=== PATIENT | male | born 1940 | race Caucasian/White ===

== ENCOUNTER 2021-04-20 09:23 | Emergency (ER) | payer OTHER ==
[~2021-04-20] VITALS: Ht 180.3 cm; Wt 89.8 kg
[2021-04-20 14:34] VITALS: BP 122/76
== END 2021-04-20 14:36 | disposition home or self-care (01) ==
LOC: EDH 09:23
DX: Z04.3 Encounter for examination and observation following other accident (principal); I48.91 Unspecified atrial fibrillation; E11.9 Type 2 diabetes mellitus without complications; Z79.01 Long term (current) use of anticoagulants; Z86.73 Personal history of transient ischemic attack (TIA), and cerebral infarction without residual deficits; W18.39XA Other fall on same level, initial encounter; Y93.89 Activity, other specified; Y92.89 Other specified places as the place of occurrence of the external cause; Y99.8 Other external cause status
CPT/HCPCS: 70450; 72125

== ENCOUNTER 2022-06-28 10:37 | Emergency (ER) | payer OTHER ==
[~2022-06-28] VITALS: Ht 182.9 cm; Wt 93.9 kg
[2022-06-28 12:08] LABS: BASOPHILS % (AUTO) 0.5 % (0.0-5.0); EOSINOPHILS % (AUTO) 1.4 % (0.0-8.0); HEMATOCRIT 43.2 % (42-54); LYMPHOCYTES % (AUTO) 24.5 % (21.0-51.0); MEAN CORPUSCULAR HEMOGLOBIN 29.9 pg (27.0-33.0); MEAN CORPUSCULAR HGB CONC 33.1 g/dL (32.0-36.0); MEAN CORPUSCULAR VOLUME 90.4 fL (79-99); MONOCYTES % (AUTO) 8.8 % (3.0-13.0); NEUTROPHILS % (AUTO) 64.4 % (40.0-77.0); PLATELET COUNT (AUTO) 255 K/uL (130-400); RED BLOOD CELL COUNT(AUTO) 4.78 MIL/uL (4.50-6.20); RED CELL DISTRIBUTION WIDTH 14.7 % (11.0-15.5)
[2022-06-28 12:16] LABS: CREATININE 1.6 mg/dL (0.5-1.5)
[2022-06-28 12:18] LABS: INR 0.99 (0.85-1.15); PROTHROMBIN TIME 10.8 SEC (9.6-11.6)
[2022-06-28 12:19] LABS: APPEARANCE,URINE CLEAR (CLEAR); BILIRUBIN,URINE NEGATIVE (NEGATIVE); COLOR,URINE YELLOW (YELLOW); GLUCOSE, URINE (UA) NEGATIVE (NEGATIVE); KETONES,URINE NEGATIVE (NEGATIVE); LEUKOCYTE ESTERASE ,URINE NEGATIVE Leu/uL (NEGATIVE); NITRATE,URINE NEGATIVE (NEGATIVE); OCCULT BLOOD,URINE LARGE (NEGATIVE); PROTEIN,URINE 10 mg/dL (NEGATIVE); UROBILINOGEN,URINE 0.2 mg/dL (0.2-1.0)
[2022-06-28 12:19] LABS: PARTIAL THROMBOPLASTIN TIME 26.4 SEC (26.3-35.5)
[2022-06-28 12:21] LABS: ALBUMIN 4.4 g/dL (3.5-5.0); TOTAL PROTEIN, SERUM 8.3 g/dL (6.0-8.3)
[2022-06-28 12:29] LABS: RBC,URINE TNTC /HPF (0-1)
[2022-06-28 13:03] VITALS: BP 132/90
== END 2022-06-28 13:18 | disposition home or self-care (01) ==
LOC: EDH 10:37
DX: R31.9 Hematuria, unspecified (principal); E11.9 Type 2 diabetes mellitus without complications; I48.91 Unspecified atrial fibrillation; Z88.5 Allergy status to narcotic agent; Z86.73 Personal history of transient ischemic attack (TIA), and cerebral infarction without residual deficits; Z98.890 Other specified postprocedural states
CPT/HCPCS: 36415; 80053; 81001; 85025; 85610; 85730; 87088

== ENCOUNTER 2022-07-12 13:40 | Observation (INO) | payer OTHER ==
[~2022-07-12] VITALS: Ht 182.9 cm; Wt 94.5 kg
[2022-07-12 14:00] LABS: BASOPHILS % (AUTO) 0.2 % (0.0-5.0); EOSINOPHILS % (AUTO) 0.1 % (0.0-8.0); HEMATOCRIT 39.2 % (42-54); LYMPHOCYTES % (AUTO) 7.9 % (21.0-51.0); MEAN CORPUSCULAR HEMOGLOBIN 30.2 pg (27.0-33.0); MEAN CORPUSCULAR HGB CONC 33.2 g/dL (32.0-36.0); MEAN CORPUSCULAR VOLUME 91.2 fL (79-99); MONOCYTES % (AUTO) 7.1 % (3.0-13.0); NEUTROPHILS % (AUTO) 84.2 % (40.0-77.0); PLATELET COUNT (AUTO) 199 K/uL (130-400); WHITE BLOOD COUNT (AUTO) 17.8 K/uL (4.8-10.8)
[2022-07-12 14:11] LABS: CREATININE 1.7 mg/dL (0.5-1.5); POTASSIUM 3.7 mmol/L (3.5-5.1)
[2022-07-12 14:13] LABS: PROTHROMBIN TIME 10.9 SEC (9.6-11.6)
[2022-07-12 14:14] LABS: PARTIAL THROMBOPLASTIN TIME 27.4 SEC (26.3-35.5)
[2022-07-12 14:17] LABS: ALBUMIN 4.1 g/dL (3.5-5.0); TOTAL PROTEIN, SERUM 7.7 g/dL (6.0-8.3)
[2022-07-12 14:24] LABS: B-TYPE NATRIURETIC PEPTIDE 24 pg/mL (0-100)
[2022-07-12] MEDS ORDERED: CLOP75TA32 PO (14:31)
[2022-07-12] MEDS ORDERED: GABA300S3 PO (14:31)
[2022-07-12] MEDS ORDERED: ATOR20TA65 PO (14:31)
[2022-07-12] MEDS ORDERED: VITA1CAP PO (14:31)
[2022-07-12] MEDS ORDERED: ALLO300T2 PO (14:31)
[2022-07-12] MEDS ORDERED: FURO40TA5 PO (14:31)
[2022-07-12] MEDS ORDERED: METO-408 PO (14:31)
[2022-07-12] MEDS ORDERED: APIX2.5T PO (14:31)
[2022-07-12 14:34] LABS: APPEARANCE,URINE CLEAR (CLEAR); BILIRUBIN,URINE NEGATIVE (NEGATIVE); COLOR,URINE YELLOW (YELLOW); GLUCOSE, URINE (UA) NEGATIVE (NEGATIVE); KETONES,URINE NEGATIVE (NEGATIVE); LEUKOCYTE ESTERASE ,URINE NEGATIVE Leu/uL (NEGATIVE); NITRATE,URINE NEGATIVE (NEGATIVE); OCCULT BLOOD,URINE LARGE (NEGATIVE); PH,URINE 5.5 (5.0-8.0); PROTEIN,URINE NEGATIVE (NEGATIVE); UROBILINOGEN,URINE 0.2 mg/dL (0.2-1.0)
[2022-07-12 14:41] LABS: RBC,URINE 51-100 /HPF (0-1)
[2022-07-12] MEDS ORDERED: ASPIRIN 81MG CHEW TAB PO ONE (16:30)
[2022-07-12] MEDS ORDERED: ONDANSETRON 4MG INJ IV PRN (18:30)
[2022-07-12] MEDS ORDERED: ACETAMINOPHEN 325 MG TAB PO PRN ×2 (18:30)
[2022-07-12] MEDS ORDERED: CLOPIDOGREL 75MG TAB PO SCH (18:30)
[2022-07-12 19:10] LABS: HEMOGLOBIN A1C 6.6 % (4.0-6.0)
[2022-07-12] MEDS: METOPROLOL TARTRATE 25 MG TAB PO SCH (20:20)
[2022-07-12] MEDS: FAMOTIDINE 20MG TAB PO SCH (20:22)
[2022-07-12] MEDS ORDERED: ATORVASTATIN 40 MG TABLET PO SCH (21:00)
[2022-07-12 22:37] VITALS: BP 138/65
[2022-07-13 04:00] VITALS: BP 108/53
[2022-07-13 05:40] LABS: BASOPHILS % (AUTO) 0.3 % (0.0-5.0); LYMPHOCYTES % (AUTO) 15.2 % (21.0-51.0); MEAN CORPUSCULAR HEMOGLOBIN 30.3 pg (27.0-33.0); MEAN CORPUSCULAR HGB CONC 32.8 g/dL (32.0-36.0); MEAN CORPUSCULAR VOLUME 92.5 fL (79-99); MONOCYTES % (AUTO) 7.2 % (3.0-13.0); NEUTROPHILS % (AUTO) 75.8 % (40.0-77.0); PLATELET COUNT (AUTO) 178 K/uL (130-400); RED BLOOD CELL COUNT(AUTO) 3.89 MIL/uL (4.50-6.20); WHITE BLOOD COUNT (AUTO) 10.5 K/uL (4.8-10.8)
[2022-07-13 05:58] LABS: CREATININE 1.6 mg/dL (0.5-1.5); POTASSIUM 3.5 mmol/L (3.5-5.1)
[2022-07-13 08:00] VITALS: BP 165/79
[2022-07-13] MEDS ORDERED: ASPIRIN 81MG CHEW TAB PO SCH (09:00)
[2022-07-13] MEDS ORDERED: CLOPIDOGREL 75MG TAB PO SCH (09:00)
[2022-07-13] MEDS: FAMOTIDINE 20MG TAB PO SCH (09:37)
[2022-07-13] MEDS: METOPROLOL TARTRATE 25 MG TAB PO SCH (09:37)
[2022-07-13 12:00] VITALS: BP 138/63
[2022-07-13 16:00] VITALS: BP 130/64
[2022-07-13] MEDS ORDERED: ATOR40TA69 PO (17:17)
[2022-07-13] MEDS ORDERED: APIXABAN 2.5 MG TABLET PO ONE (17:30)
== END 2022-07-13 17:35 | disposition home or self-care (01) ==
LOC: EDH 13:40 → EDHIP 18:20 → 4AH 22:33
PROVIDERS: ADMIT Internal Medicine; ATTEND Internal Medicine
DX: G45.9 Transient cerebral ischemic attack, unspecified (principal); D72.829 Elevated white blood cell count, unspecified; D64.9 Anemia, unspecified; E87.1 Hypo-osmolality and hyponatremia; I12.9 Hypertensive chronic kidney disease with stage 1 through stage 4 chronic kidney disease, or unspecified chronic kidney disease; N18.32 Chronic kidney disease, stage 3b; I48.0 Paroxysmal atrial fibrillation; I63.9 Cerebral infarction, unspecified; E78.00 Pure hypercholesterolemia, unspecified; R47.01 Aphasia; R29.700 NIHSS score 0; Z79.01 Long term (current) use of anticoagulants; Z79.02 Long term (current) use of antithrombotics/antiplatelets; Z79.899 Other long term (current) drug therapy; Z86.73 Personal history of transient ischemic attack (TIA), and cerebral infarction without residual deficits; Z88.5 Allergy status to narcotic agent; Z98.890 Other specified postprocedural states
CPT/HCPCS: 99285; 83036; 82550; 83721; 84484; 80053; 83880; 85025 ×2; 85610; 85730; 87088; 82948; 81001; 36415 ×2; 71045; 70450; 76770; 93880; 93005; 80061; 80048; 93306; 70551; G0378 ×22

== ENCOUNTER 2023-04-02 17:28 | Emergency (ER) | payer OTHER ==
[~2023-04-02] VITALS: Ht 182.9 cm; Wt 98.0 kg
[~2023-04-02 17:28] MED LIST: ALLO300T2 PO; APIX2.5T PO; ATOR40TA69 PO; BENZ-226 PO; CLOP75TA32 PO; FURO40TA5 PO; GABA300S3 PO; METO-408 PO; VITA1CAP PO
[2023-04-02] MEDS ORDERED: MAGNESIUM HYDROXIDE 30 ML/UDCUP PO STA (19:45)
[2023-04-02] MEDS ORDERED: MAGNESIUM HYDROXIDE 30 ML/UDCUP ONE (19:47)
[2023-04-02 19:56] VITALS: BP 155/65; PULSE 88; RESP 18; O2SAT 98
== END 2023-04-02 20:03 | disposition home or self-care (01) ==
LOC: EDH 17:28
DX: M54.9 Dorsalgia, unspecified (principal); R51.9 Headache, unspecified; E78.00 Pure hypercholesterolemia, unspecified; I48.91 Unspecified atrial fibrillation; Z79.899 Other long term (current) drug therapy; Z98.890 Other specified postprocedural states; Z88.5 Allergy status to narcotic agent; W01.0XXA Fall on same level from slipping, tripping and stumbling without subsequent striking against object, initial encounter; Y93.89 Activity, other specified; Y92.89 Other specified places as the place of occurrence of the external cause; Y99.8 Other external cause status
CPT/HCPCS: 70450; 71045; 72125

== ENCOUNTER 2023-10-08 17:04 | Emergency (ER) | payer OTHER ==
[~2023-10-08] VITALS: Ht 182.9 cm; Wt 95.3 kg
[~2023-10-08 17:04] MED LIST changes: +CHOL2000 PO; +MILK175T PO; +PANT40TA55 PO; +POTA-202 PO; +PRED20TA3 PO
[2023-10-08] MEDS: MAG/ALUM/SIMETH 30 ML UDCUP PO ONE (18:34)
[2023-10-08 18:38] VITALS: BP 126/54; PULSE 92; RESP 18; O2SAT 96
[2023-10-08] MEDS ORDERED: DICL20GE TP (18:49)
== END 2023-10-08 19:18 | disposition home or self-care (01) ==
LOC: EDH 17:04
DX: M25.561 Pain in right knee (principal); G89.29 Other chronic pain; M25.551 Pain in right hip; I10 Essential (primary) hypertension; Z79.01 Long term (current) use of anticoagulants; Z79.02 Long term (current) use of antithrombotics/antiplatelets; Z79.52 Long term (current) use of systemic steroids; Z79.899 Other long term (current) drug therapy; Z86.73 Personal history of transient ischemic attack (TIA), and cerebral infarction without residual deficits; Z88.5 Allergy status to narcotic agent
CPT/HCPCS: 73502; 73562

== ENCOUNTER 2023-11-17 16:26 | Emergency (ER) | payer OTHER ==
[~2023-11-17] VITALS: Ht 182.9 cm; Wt 95.3 kg
[~2023-11-17 16:26] MED LIST changes: +DICL20GE TP
[2023-11-17 17:26] LABS: INFLUENZA TYPE A Negative For Type A (NEGATIVE); INFLUENZA TYPE B Negative For Type B (NEGATIVE)
[2023-11-17 17:57] LABS: SARS-CoV-2, RNA, NAAT POSITIVE SARS CoV-2 (NEGATIVE)
[2023-11-17 19:13] LABS: APPEARANCE,URINE CLEAR (CLEAR); BILIRUBIN,URINE NEGATIVE (NEGATIVE); COLOR,URINE YELLOW (YELLOW); GLUCOSE, URINE (UA) NEGATIVE (NEGATIVE); KETONES,URINE NEGATIVE (NEGATIVE); LEUKOCYTE ESTERASE ,URINE NEGATIVE Leu/uL (NEGATIVE); NITRATE,URINE NEGATIVE (NEGATIVE); OCCULT BLOOD,URINE NEGATIVE (NEGATIVE); PROTEIN,URINE 20 mg/dL (NEGATIVE); UROBILINOGEN,URINE 0.2 mg/dL (0.2-1.0)
[2023-11-17 19:14] LABS: ADD UA MICROSCOPIC YES
[2023-11-17 19:16] LABS: MUCUS,URINE RARE LPF (None Seen); WBC,URINE 0-1 /HPF (0-1)
[2023-11-17] MEDS ORDERED: AZIT1PAC7 PO (20:21)
[2023-11-17 20:33] VITALS: BP 131/62; PULSE 95; RESP 18; O2SAT 96
== END 2023-11-17 20:34 | disposition home or self-care (01) ==
LOC: EDH 16:26
DX: U07.1 COVID-19 (principal); I10 Essential (primary) hypertension; I48.91 Unspecified atrial fibrillation; Z86.73 Personal history of transient ischemic attack (TIA), and cerebral infarction without residual deficits; Z88.5 Allergy status to narcotic agent; Z79.899 Other long term (current) drug therapy; Z79.2 Long term (current) use of antibiotics; Z79.02 Long term (current) use of antithrombotics/antiplatelets
CPT/HCPCS: 71045; 81001; 87635; 87804

== ENCOUNTER → 2024-03-11 | Outpatient (CLI) | payer OTHER ==
[~2024-03-11] MED LIST changes: -APIX2.5T PO; -BENZ-226 PO; -CLOP75TA32 PO; -DICL20GE TP; +EMPA25TA PO; -FURO40TA5 PO; -GABA300S3 PO; +LEVO-70 PO; -PANT40TA55 PO; -POTA-202 PO; -PRED20TA3 PO; +PREG100C56 PO
[2024-03-11 17:10] LABS: ALBUMIN 3.8 g/dL (3.5-5.0); BILIRUBIN,TOTAL 0.5 mg/dL (0.2-1.0); CREATININE 1.5 mg/dL (0.5-1.3); POTASSIUM 4.1 mmol/L (3.5-5.1); TOTAL PROTEIN, SERUM 7.2 g/dL (6.0-8.3)
== END | disposition home or self-care (01) ==
LOC: LAB 14:02
PROVIDERS: ATTEND Internal Medicine Cardiovascular Disease
DX: I10 Essential (primary) hypertension (principal)
CPT/HCPCS: 36415; 80053

== ENCOUNTER → 2024-03-17 | Outpatient (CLI) | payer OTHER | END | disposition home or self-care (01) | LOC: SHCH 08:40 | PROVIDERS: ATTEND Internal Medicine Cardiovascular Disease | DX: R60.9 Edema, unspecified (principal) | CPT/HCPCS: 93970 ==

== ENCOUNTER → 2024-08-13 | Outpatient (CLI) | payer OTHER ==
[2024-08-13 14:55] LABS: BASOPHILS # (AUTO) 0.02 K/uL (0.00-0.20); BASOPHILS % (AUTO) 0.3 % (0.0-5.0); EOSINOPHILS # (AUTO) 0.06 K/uL (0.00-0.70); HEMATOCRIT 36.4 % (42-54); IMMATURE GRANULOCYTE ABSOLUTE 0.03 K/uL (0-1); LYMPHOCYTES % (AUTO) 31.4 % (21.0-51.0); MEAN CORPUSCULAR HEMOGLOBIN 30.2 pg (27.0-33.0); MEAN CORPUSCULAR HGB CONC 33.8 g/dL (32.0-36.0); MEAN CORPUSCULAR VOLUME 89.4 fL (79-99); MONOCYTES # (AUTO) 0.4 K/uL (0.1-1.0); MONOCYTES % (AUTO) 6.4 % (3.0-13.0); NEUTROPHILS # (AUTO) 3.8 K/uL (1.8-7.7); NEUTROPHILS % (AUTO) 60.4 % (40.0-77.0); PLATELET COUNT (AUTO) 241 K/uL (130-400); RED BLOOD CELL COUNT(AUTO) 4.07 MIL/uL (4.50-6.20); RED CELL DISTRIBUTION WIDTH 15.9 % (11.0-15.5); WHITE BLOOD COUNT (AUTO) 6.3 K/uL (4.8-10.8)
[2024-08-13 15:04] LABS: CREATININE 1.6 mg/dL (0.5-1.3); POTASSIUM 3.7 mmol/L (3.5-5.1)
[2024-08-13 15:06] LABS: INR 1.03 (0.85-1.15); PROTHROMBIN TIME 10.9 SEC (9.6-11.6)
[2024-08-13 15:07] LABS: PARTIAL THROMBOPLASTIN TIME 27.1 SEC (26.3-35.5)
== END | disposition home or self-care (01) ==
LOC: LAB 12:56
PROVIDERS: ATTEND Internal Medicine Cardiovascular Disease
DX: Z01.812 Encounter for preprocedural laboratory examination (principal); I87.1 Compression of vein; I48.0 Paroxysmal atrial fibrillation; Z79.01 Long term (current) use of anticoagulants
CPT/HCPCS: 36415; 80048; 85025; 85610; 85730

== ENCOUNTER 2024-08-15 16:45 | Emergency (ER) | payer OTHER ==
[~2024-08-15] VITALS: Ht 182.9 cm; Wt 87.5 kg
--- NOTE | 2024-08-15 17:46 | ERN ---
General Chief Complaint: Other Problems Stated Complaint: SWELLING INCISION SITE Time Seen by MD: 16:48 Source: patient History of Present Illness Initial Comments PATIENT IS A AN 84-YEAR-OLD GENTLEMAN COMING IN TO BE EVALUATED FOR A INGUINAL WOUND. PATIENT STATES THAT HE HAD A ABLATION AND IT WAS PERFORMED THROUGH HIS FEMORAL ARTERY. HE STATES THAT HE WAS CONCERNED BECAUSE THERE WAS MILD SWELLING OF THE LEFT INGUINAL AREA. Allergies: Coded Allergies: morphine (Unverified Allergy, Unknown, 06/28/22) Uncoded Allergies: NICOTINIC ACID (Allergy, Unknown, 06/28/22) Home Meds Active Scripts Levofloxacin (Levofloxacin) 500 Mg Tablet, 1 TAB PO DAILY for 10 Days, #10 TAB 0 Refills Prov:SAMI MUSA MD 02/13/24 Atorvastatin Calcium (LIPITOR) 40 Mg Tablet, 40 MG PO HS for 30 Days, #30 TAB 1 Refill Prov:DANIEL JERONIMO Jr., MD 07/13/22 Reported Medications Empagliflozin (Jardiance) 25 Mg Tablet, 1 TAB PO DAILY for 30 Days, #30 TAB 0 Refills 02/12/24 Pregabalin (Pregabalin) 100 Mg Capsule, 1 CAP PO BID MDD 2 Capsule(s) for 30 Days, #60 CAP 0 Refills 02/12/24 Milk Thistle (Milk Thistle) 175 Mg Tablet, 175 MG PO DAILY, TAB 05/23/23 Cholecalciferol (Vitamin D3) (Vitamin D3) 50 Mcg (2000 Unit) Capsule, 50 MCG PO DAILY, CAP 05/23/23 Vitamin B Complex (B Complex) 1 Cap Capsule, 1 CAP PO DAILY, CAP 07/12/22 Allopurinol (Allopurinol) 300 Mg Tablet, 300 MG PO DAILY, TAB 07/12/22 Metoprolol Succinate (Metoprolol Succinate) 25 Mg Tab.er.24h, 25 MG PO DAILY, TAB 07/12/22 Past Medical History Past Medical History: Cancer, Hypertension, Pneumonia, TIA Medical History Other: leukymia Past Surgical History: Other Surgical History Other: 3RD CRAINAL NERVE DECOMPRESSION, RIGHT KNEE, Social History Social History: Negative ROS Dictation CONSTITUTIONAL: NO CHILLS, NO FEVER, NO WEAKNESS, NO DIAPHORESIS, NO MALAISE. HEAD/FACE: NO SIGNS OF TRAUMA. EENT: NO EYE PAIN, NO BLURRED VISION, NO TEARING, NO DOUBLE VISION, NO EAR PAIN, NO EAR DISCHARGE, NO NOSE PAIN, NO NASAL CONGESTION, NO THROAT PAIN, NO THROAT SWELLING, NO MOUTH PAIN. RESPIRATORY: NO COUGH, NO ORTHOPNEA, NO SOB, NO STRIDOR, NO WHEEZING. CARDIOVASCULAR: NO CHEST PAIN, NO EDEMA, NO PALPITATIONS, NO SYNCOPE. GASTROINTESTINAL/ABDOMINAL: NO ABDOMINAL PAIN, NO CONSTIPATION, NO DIARRHEA, NO NAUSEA, NO VOMITING. GENITOURINARY: NO ABNORMAL DISCHARGE, NO DYSURIA, NO FREQUENT URINATION, NO HEMATURIA. NO COMPLAINTS OF PAIN IN THE GENITALS. MUSCULOSKELETAL: NO BACK PAIN, NO GOUT, NO JOINT PAIN, NO JOINT SWELLING, NO MUSCLE PAIN, NO MUSCLE STIFFNESS, NO NECK PAIN. INTEGUMENTARY: NO CHANGE IN COLOR, NO CHANGE IN HAIR/NAILS, NO DRYNESS, NO LESION, LUMPS, NO RASH. NEUROLOGICAL/PSYCH: NO ANXIETY, NOT DEPRESSED, NO EMOTIONAL PROBLEM, NO HEADACHE, NO NUMBNESS, NO PRE-EXISTING DEFICIT, NO HISTORY OF SEIZURES, NO TREMORS, NO WEAKNESS. HEMATOLOGIC/LYMPHATIC: NOT ANEMIC, NO HISTORY OF BLOOD CLOTS, NO APPARENT BLEEDING, NO BRUISING, GLANDS NOT SWOLLEN. ALL SYSTEMS NEGATIVE, EXCEPT NOTED. Physical Exam Physical Exam Dictation VITAL SIGNS: REVIEWED. GENERAL APPEARANCE: ALERT, ORIENTED X3, NO ACUTE DISTRESS, OBESE. HEAD AND FACE: NON-TRAUMATIC. EYES: PERRL, PINK CONJUNCTIVAS, EYELID NO TRAUMA, ANTERIOR CHAMBER CLEAR. EARS: PINNAS INTACT AND NO SIGNS OF TRAUMA OR ERYTHEMA. EAR CANALS CLEAR AND NO DISCHARGE. TMS NO ERYTHEMA. NOSE: NO DISCHARGE, NO BLEEDING. OROPHARYNX: MOUTH NORMAL, TEETH NO CARIES, TONGUE PINK. PHARYNX CLEAR, NO ERYTHEMA. TONSILS NO EXUDATES, NO ABSCESSES NOTED. MUCOUS MEMBRANE MOIST. NECK: SUPPLE, NON-TENDER, NO THYROMEGALY, NO MASSES, NO JVD, NO BRUITS. BREAST: DEFERRED. CHEST: NO TENDERNESS, NO CREPITUS, NO PARADOXICAL MOVEMENT, NO RETRACTIONS. LUNGS: CLEAR, WELL-VENTILATED, SYMMETRIC, NO RALES, NO WHEEZING, NO RHONCHI, NO STRIDOR, GOOD BREATH SOUNDS BILATERALLY. HEART: REGULAR RATE, REGULAR RHYTHM, NO MURMUR, NO GALLOPS. VASCULAR: NO PERIPHERAL EDEMA. ABDOMEN: SOFT, POSITIVE BOWEL SOUNDS, NONDISTENDED, NO GUARDING, NONTENDER, NO REBOUND, NO MASSES NO HEPATOMEGALY, NO SPLENOMEGALY, NO MTOA'S SIGN, NO HERNIAS. RECTAL: DEFERRED. GENITAL: DEFERRED. NEUROLOGICAL: NORMAL SPEECH, GROSS MOTOR FUNCTION INTACT, GROSS SENSORY FUNCTION INTACT. MUSCULOSKELETAL: NECK NONTENDER, FULL RANGE OF MOTION, BACK NONTENDER, FULL RANGE OF MOTION. EXTREMITIES: NONTENDER, FULL RANGE OF MOTION. LEFT INGUINAL TENDERNESS, MILD SWELLING SKIN: COLOR PINK, DRY, NO TURGOR, NO RASH, NO LACERATIONS, NO ABRASIONS, NO CONTUSIONS. LYMPHATICS: DEFERRED. Results Laboratory and Microbiology Labs Reviewed?: Yes EKG/XRAY/US/CT/MRI Ultrasound Comment ULTRASOUND LEFT INGUINAL-NAD MDM MDM: DIFFERENTIAL DIAGNOSIS: WOUND EVALUATION, STATUS POST ABLATION RATIONALE: TESTS CONSIDERED AND ORDERED SECONDARY TO SHARED DECISION MAKING INCLUDE: PREVIOUS OUTSIDE RECORDS REVIEWED: OLD ER VISITS. RISK OF COMPLICATION AND/OR MORBIDITY OR MORTALITY OF PATIENT MANAGEMENT: NONE MEDICATIONS-PER MEDICATION RECONCILIATION PATIENT IS A AN 84-YEAR-OLD MALE COMING IN TO BE EVALUATED FOR LEFT INGUINAL TENDERNESS AFTER A PROCEDURE WAS PERFORMED EARLIER IN THE MORNING. 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 JASMINE. ULTRASOUND DID NOT DISCLOSE ACUTE FINDINGS. PATIENT WILL BE DISCHARGED IN STABLE CONDITION WITH A DIAGNOSIS OF STATUS POST ABLATION. ED Course Orders Procedure Category Date Status Time Us Soft Tissue Groin US 08/15/24 Taken 16:56 Vital Signs Date Time Temp Pulse Resp B/P (MAP) Pulse Ox O2 Delivery O2 Flow Rate FiO2 08/15/24 17:00 98.4 77 16 167/65 97 Room Air* 0 21 08/15/24 16:47 98.4 77 16 167/65 97 Room Air DX & DISP Disposition: Discharge Departure Impression: Primary Impression: Status post ablation of atrial fibrillation Additional Impression: Encounter for evaluation of wound Condition: Stable Additional Instructions: FOLLOW-UP WITH PRIMARY CARE PROVIDER IN 1 TO 2 DAYS. TAKE MEDICATIONS DIRECTED HERE IN THE EMERGENCY ROOM. OKAY TO CONTINUE HOME MEDICATIONS UNLESS OTHERWISE DISCUSSED DURING YOUR VISIT IN THE EMERGENCY ROOM TODAY. RETURN TO YOUR NEAREST EMERGENCY ROOM IF SYMPTOMS WORSEN OR IF THERE IS NO IMPROVEMENT. CALL 911 IF YOU NEED IMMEDIATE ASSISTANCE. TAKE TYLENOL [id number] NEEDED AND IF NO CONTRAINDICATIONS ARE PRESENT. INCREASE ORAL HYDRATION. A WOUND CULTURE OR URINE CULTURE WAS ORDERED HERE IN THE EMERGENCY ROOM DEPARTMENT PLEASE FOLLOW-UP WITH PRIMARY CARE PROVIDER AND ADVISE THEM TO GET REPEAT PORTS FROM OUR FACILITY. IF YOU HAD ANY JANET WRAP/SPLINTS THAT WERE APPLIED HERE, PLEASE DO NOT REMOVE THEM UNTIL YOU SEE YOUR PRIMARY CARE OR SPECIALTY. REFERRALS: Referrals: ANASTASIYA JOSHI MD (PCP) Time of Disposition: 17:46 RYAN CAREY MD August 15, 2024 17:46
[2024-08-15 18:00] VITALS: BP 152/45; PULSE 73; RESP 16; TEMP 98.5; O2SAT 98
--- NOTE | 2024-08-15 18:01 | HMCIMG ---
ULTRASOUND SOFT TISSUE GROIN INDICATION: Left inguinal swelling COMPARISON: None TECHNIQUE: Multiplanar sonographic images of the left groin were obtained earlier in real-time using grayscale and color Doppler technique, and subsequently made available for review. FINDINGS/IMPRESSION: No abnormality demonstrated along the left groin, including no evidence for pseudoaneurysm. Left common femoral artery is compressible and patent, and left common femoral arterial bypass graft is also patent.
== END 2024-08-15 18:11 | disposition home or self-care (01) ==
LOC: EDH 16:45
DX: I48.91 Unspecified atrial fibrillation (principal); I10 Essential (primary) hypertension; Z79.84 Long term (current) use of oral hypoglycemic drugs; Z79.899 Other long term (current) drug therapy; Z86.73 Personal history of transient ischemic attack (TIA), and cerebral infarction without residual deficits; Z88.5 Allergy status to narcotic agent; Z98.890 Other specified postprocedural states
CPT/HCPCS: 76882; 99284

== ENCOUNTER 2024-09-26 17:20 | Emergency (ER) | payer OTHER ==
[~2024-09-26] VITALS: Ht 167.6 cm; Wt 93.0 kg
--- NOTE | 2024-09-26 17:40 | ERN ---
ED Note History of Present Illness Stated Complaint: DIZZY BLURRED VISION Chief Complaint: Dizzy/Light Headed Time Seen by MD: 17:29 Time Seen by Midlevel: 17:29 Dictation: Mr. Rollins is a 84 year old gentleman with history of TIA, hypertension, atrial fibrillation, type II DM, anemia, multiple myeloma, peripheral neuropathy, COPD and MONICA who presented to the Emergency Department this evening for evaluation of dizziness. He states that 45 minutes ago he developed dizziness with blurred vision and intermittent nausea. He states that he checked his blood sugar at home and it was 160. He felt that his blood pressure may be elevated. He denies chills, fever, shortness of breath, cough, chest pain, palpitations, abdominal pain, vomiting, diarrhea, melena, hematochezia, hematemesis, [place]RO[place], seizure, dysarthria, dysphagia, or focal weakness/paresthesia. He states he has been outside working on projects and gardening in the heat of the day. PCP: [facility] Allergies: Coded Allergies: morphine (Unverified Allergy, Unknown, 06/28/22) Uncoded Allergies: NICOTINIC ACID (Allergy, Unknown, 06/28/22) Home Meds Active Scripts Levofloxacin (Levofloxacin) 500 Mg Tablet, 1 TAB PO DAILY for 10 Days, #10 TAB 0 Refills Prov:SAMI MUSA MD 02/13/24 Atorvastatin Calcium (LIPITOR) 40 Mg Tablet, 40 MG PO HS for 30 Days, #30 TAB 1 Refill Prov:DANIEL JERONIMO Jr., MD 07/13/22 Reported Medications Empagliflozin (Jardiance) 25 Mg Tablet, 1 TAB PO DAILY for 30 Days, #30 TAB 0 Refills 02/12/24 Pregabalin (Pregabalin) 100 Mg Capsule, 1 CAP PO BID MDD 2 Capsule(s) for 30 Days, #60 CAP 0 Refills 02/12/24 Milk Thistle (Milk Thistle) 175 Mg Tablet, 175 MG PO DAILY, TAB 05/23/23 Cholecalciferol (Vitamin D3) (Vitamin D3) 50 Mcg (2000 Unit) Capsule, 50 MCG PO DAILY, CAP 05/23/23 Vitamin B Complex (B Complex) 1 Cap Capsule, 1 CAP PO DAILY, CAP 07/12/22 Allopurinol (Allopurinol) 300 Mg Tablet, 300 MG PO DAILY, TAB 07/12/22 Metoprolol Succinate (Metoprolol Succinate) 25 Mg Tab.er.24h, 25 MG PO DAILY, TAB 07/12/22 Past Medical History Past Medical History: Cancer, Hypertension, Pneumonia, TIA Additional Past Medical Hx: leukymia Surgical History: Other Surgical History Other: 3RD CRAINAL NERVE DECOMPRESSION, RIGHT KNEE, PSYCH History: no pertinent psych hx Social History: Negative, Lives with family RN Note Reviewed/Agreed w/PFSH: Yes Review of System Dictation REVIEW OF SYSTEMS: CONSTITUTIONAL: Patient denies fevers, chills, sweats and weight changes. EYES: Reports blurry vision times 45 minutes. EARS, NOSE, AND THROAT: No difficulties with hearing. No symptoms of rhinitis or sore throat. CARDIOVASCULAR: Patient denies chest pains, palpitations, orthopnea and paroxysmal nocturnal dyspnea. States he felt like his blood pressure might be high. RESPIRATORY: No dyspnea on exertion, no wheezing or cough. GI: No vomiting, diarrhea, constipation, abdominal pain, hematochezia or melena. Reports intermittent nausea. : No urinary hesitancy or dribbling. No abnormal urethral discharge. Reports frequent urination per baseline. Patient states he voids 8-12 times/24 hours. MUSCULOSKELETAL: No myalgias or arthralgias. NEUROLOGIC: No chronic headaches, no seizures. Patient denies numbness, tingling or weakness. No difficulty speaking, swallowing, or walking. No focal weakness or paresthesia. PSYCHIATRIC: Patient denies problems with mood disturbance. No problems with anxiety. ENDOCRINE: No excessive urination or excessive thirst. DERMATOLOGIC: Patient denies any rashes or skin changes. Initial Vital Sign VS Vital Signs Date Time Temp Pulse Resp B/P (MAP) Pulse Ox O2 Delivery O2 Flow Rate FiO2 09/26/24 17:25 98.8 74 18 147/69 99 Room Air 0 09/26/24 19:19 21 Physical Exam Dictation Vital signs: Reviewed. Afebrile. Constitutional: No acute distress. Non-toxic appearing. Ambulating well (uses cane). Accompanied by significant other. Head/Face: Normocephalic, atraumatic. Eyes: Periorbital areas with no swelling, redness, or edema. Lids and lashes are normal. Conjunctival injection is absent. Sclera anicteric. Pupils equal, round, reactive to light. ENT: Pinnas intact and no signs of trauma or erythema. Ear canals clear and no discharge. TMs no erythema. No nasal discharge or bleeding noted. Oropharynx with no exudate, redness, swelling, masses, exudates, or evidence of obstruction. Uvula midline. Mucous membranes moist. Neck: Trachea midline, no masses palpated, and no cervical lymphadenopathy. No swelling. Supple, full range of motion. Chest/Axilla: No tenderness, no crepitus, no paradoxical movement, no retractions. Cardiovascular: Regular rate, regular rhythm, no murmur, no gallops. Symmetric pulses. No peripheral edema. Twelve lead EKG reflects a sinus rhythm without ST-elevation or depression. BP 147/69. Respiratory: Respirations even and unlabored. Lung sounds clear; no wheezes, rales or rhonchi. Room air SpO2 99% Gastrointestinal: Inspection is normal. No distention is appreciated. Bowel sounds are normal. No mass or organomegaly . There is no tenderness. No rebound. No rigidity. No voluntary or involuntary guarding. No Nino's sign. Neurological: Normal speech, gross motor function intact, gross sensory function intact. No focal weakness/Paresthesia. No ataxia. No dysphasia. No dysarthria. Musculoskeletal/Extremities: All extremities have full range of motion, no pain or tenderness on palpation. Symmetric pulses. Integumentary: Intact. Skin is normal color, warm and dry. Cap refill less than 3 seconds. Results (Laboratory/Radiology) Laboratory/Radiology Laboratory Tests Test 09/26/24 17:40 09/26/24 19:39 09/26/24 19:46 White Blood Count 7.7 K/uL (4.8-10.8) Red Blood Count 4.22 MIL/uL (4.50-6.20) L Hemoglobin 12.8 g/dL (14.0-18.0) L Hematocrit 38.6 % (42-54) L Mean Corpuscular Volume 91.5 fL (79-99) Mean Corpuscular Hemoglobin 30.3 pg (27.0-33.0) Mean Corpuscular Hemoglobin Concent 33.2 g/dL (32.0-36.0) Red Cell Distribution Width 14.8 % (11.0-15.5) Platelet Count 227 K/uL (130-400) Mean Platelet Volume 9.8 fL (7.5-10.5) Immature Granulocyte % (Auto) 0.4 % (0-1) Neutrophils (%) (Auto) 60.0 % (40.0-77.0) Lymphocytes (%) (Auto) 30.2 % (21.0-51.0) Monocytes (%) (Auto) 7.7 % (3.0-13.0) Eosinophils (%) (Auto) 1.3 % (0.0-8.0) Basophils (%) (Auto) 0.4 % (0.0-5.0) Neutrophils # (Auto) 4.6 K/uL (1.8-7.7) Lymphocytes # (Auto) 2.3 K/uL (1.0-4.8) Monocytes # (Auto) 0.6 K/uL (0.1-1.0) Eosinophils # (Auto) 0.10 K/uL (0.00-0.70) Basophils # (Auto) 0.03 K/uL (0.00-0.20) Absolute Immature Granulocyte (auto 0.03 K/uL (0-1) Nucleated Red Blood Cells 0.0 % (0.0-0.19) Sodium Level 141 mmol/L (136-145) Potassium Level 4.5 mmol/L (3.5-5.1) Chloride Level 105 mmol/L (101-111) Carbon Dioxide Level 27 mmol/L (21-32) Blood Urea Nitrogen 33 mg/dL (7-18) H Creatinine 1.2 mg/dL (0.5-1.3) Glomerular Filtration Rate Calc 59 mL/min (>90) Random Glucose 146 mg/dL (70-105) H Total Calcium 8.8 mg/dL (8.5-10.1) Total Bilirubin 0.5 mg/dL (0.2-1.0) Direct Bilirubin 0.2 mg/dL (0.0-0.3) Aspartate Amino Transf (AST/SGOT) 22 U/L (10-37) Alanine Aminotransferase (ALT/SGPT) 37 U/L (12-78) Alkaline Phosphatase 82 U/L (50-136) Troponin I High Sensitivity 8 ng/L (4-75) B-Type Natriuretic Peptide 11 pg/mL (0-100) Total Protein 7.5 g/dL (6.0-8.3) Albumin 4.1 g/dL (3.5-5.0) Influenza Type A Antigen Negative For Type A Influenza Type B Antigen Negative For Type B SARS-CoV-2, RNA, NAAT NEGATIVE SARS CoV-2 Urine Color LIGHT-YELLOW (YELLOW) Urine Appearance CLEAR (CLEAR) Urine pH 5.0 (5.0-8.0) Urine Specific [place] 1.020 (1.001-1.031) Urine Protein NEGATIVE mg/dL (NEGATIVE) Urine Glucose (UA) NEGATIVE mg/dL (NEGATIVE) Urine Ketones NEGATIVE mg/dL (NEGATIVE) Urine Occult Blood NEGATIVE (NEGATIVE) Urine Nitrate NEGATIVE (NEGATIVE) Urine Bilirubin NEGATIVE mg/dL (NEGATIVE) Urine Urobilinogen 0.2 mg/dL (0.2-1.0) Urine Leukocyte Esterase NEGATIVE Jyoti/uL Labs Reviewed?: Yes EKG Comment: EKG Interpretation: Time Reviewed: 1740 Ventricular rate: 73 bpm GA Interval: 140 ms QRS duration: [address] segment elevation or depression. Clinical impression: Sinus rhythm EKG Reviewed and interpreted by Dr. Jesisca Rothman CT Scan Comment: PATIENT: SERGIO ROLLINS MR#: [id number] : 1940 SEX: M AGE: 84 LOCATION: [facility] ORDER 33 STATUS: [facility] REPORT#: [id number] SERVICE 32 REASON: dizziness/blurred vision ORDERING PHYSICIAN: TOMÁS MACARIO NP PROCEDURE: HEAD WO - CT HEAD/BRAIN W/O CONTRAST CT HEAD/BRAIN W/O CONTRAST HISTORY: Dizziness and blurred vision COMPARISON: 09/26/2024 TECHNIQUE: Multiple sequential axial images of the head were obtained from the base of the skull through vertex. Patient was not given contrast through intravenous route. FINDINGS: The ventricles and extraventricular CSF spaces are dilated consistent with cerebral atrophy. Nonspecific white matter changes seen. There is no midline shift, mass effect or herniation. No acute intracranial bleed is seen. Visualized portion of the paranasal sinuses are grossly within normal limits. IMPRESSION: 1. No acute intracranial bleed is seen. 2. Atrophy with white matter changes. CT was performed with one or more following dose reduction techniques: automated exposure control, adjustment of the mA and kv according to patient's size, or use of a iterative reconstruction technique. DICTATED BY: CAMPOS WRIGHT MD DATE: 09/26/241908 ELECTRONICALLY SIGNED BY: CAMPOS WRIGHT MD DATE: 09/26/241912 ED Course ED Course Orders Procedure Category Date Status Time 12 Lead Ekg Tracing- EKG 09/26/24 Complete Technical 17:30 Cbc With Differential LAB 09/26/24 Complete 17:30 Basic Metabolic Panel LAB 09/26/24 Complete 17:30 Hepatic Function Panel LAB 09/26/24 Complete 17:30 Troponin I High LAB 09/26/24 Complete Sensitivity 17:30 B-Type Natriuretic LAB 09/26/24 Complete Peptide 17:30 Urinalysis Profile LAB 09/26/24 Complete 17:30 Influenza Type A & B, LAB 09/26/24 Complete Rapid 17:30 Covid Rna Naat LAB 09/26/24 Complete 17:30 Saline Lock Iv CPOE 09/26/24 Transmitted 17:30 Ct Head/Brain W/O CT 09/26/24 Resulted Contrast 17:33 0.9% Nacl 500ml PHA 09/26/24 In Process Iv.Soln (Ns 500ml 19:00 Current Medications Medications (Trade) Dose Ordered Sig/Naveed Route PRN Reason Start Time Stop Time Status Last Admin Dose Admin Sodium Chloride 500 ml @ 0 mls/hr ONCE IV 09/26/24 19:00 09/27/24 18:59 09/26/24 19:20 Vital Signs Date Time Temp Pulse Resp B/P (MAP) Pulse Ox O2 Delivery O2 Flow Rate FiO2 09/26/24 19:19 97.9 63 19 139/76 97 Room Air* 0 21 09/26/24 17:25 98.8 74 18 147/69 99 Room Air 0 Uneventful ED course. Vital signs stable; afebrile and normotensive with room air SpO2 97-98%. Twelve lead EKG reflects a sinus rhythm without ST-elevation. Stat noncontrast CT scan of the brain negative for intracerebral hemorrhage. Laboratory findings as noted below. H and H stable 12.8/38.6, BUN 33, BUN/CR ratio is 26.6, glucose 146. BNP and troponin are not elevated. COVID and influenza are negative. UA is clear. He denies chest pain or shortness of breath. He denies dizziness or vision changes. He has been ambulatory with steady gait. He received NS 500 mL IV as bolus. He will be discharged to home with his significant other for follow up with his PCP at the [facility]. Medical Decision Making MDM MDM: Differential diagnosis: Influenza, COVID, stroke, ACS, electrolyte derangement, dehydration/heat related injury. Rationale: Tests considered and ordered secondary to shared decision making include: EKG, CT, LAB Previous outside records reviewed: Old ER visits. Risk of complication and/or morbidity or mortality of patient management: None Medications-Per medication reconciliation Need for hospitalization: Patient does not meet criteria for hospitalization. Need for emergency major/minor surgery: No There are no social concerns with this patient. Prescription drug management: None Prescriptions will include symptomatic care Patient's prior external medical records from other ER visits were reviewed by me as indicated. Prior testing and results from previous visits were reviewed. Prior tests were taken into account with medical decision making and resource utilization, independent historian/historians were used to obtain complete medical history. I independently interpreted the test that were performed, results were reviewed by me and considered findings on radiology if ordered. Medical management and examination interpretation discussions were had by me with other qualified healthcare professionals as indicated for the patient's care. DX & DISP Disposition: Discharge Departure Impression: Primary Impression: Dehydration Additional Impression: Dizziness Condition: Stable Additional Instructions: Increase oral fluid intake. Consider spending your time outside in the direct of real estate or evening to avoid excessive heat exposure. Continue current medications. Follow up with your PCP at the [facility]. Return to the emergency department for any worsening of symptoms to include: Vision changes, persistent dizziness, headache, slurring of speech, or focal weakness/paresthesia. Referrals: ANASTASIYA JOSHI MD (PCP) Time of Disposition: 20:18 TOMÁS MACARIO NP Sep 26, 2024 17:40
--- NOTE | 2024-09-26 17:44 | EKG ---
[facility] Test Date: 2024-09-26 Test Time: 17:41:14 Pat Name: SERGIO YEBOAH Department: ED Room: Gender: M [employer] Supervisor: [id number] : 1940 Requested By: TOMÁS MACARIO Order Number: [id number] Reading MD: Mickey Boggs Measurements Intervals [place] Rate: 73 P: 65 WI: 140 QRS: 52 QRSD: 81 T: 24 QT: 369 QTc: 408 Interpretive Statements Sinus rhythm Low voltage, precordial leads Compared to ECG 02/11/2024 16:50:03 Low QRS voltage now present Sinus tachycardia no longer present Ventricular premature complex(es) no longer present Electronically Signed On 09-28-2024 14:41:32 CDT by Mickey Boggs Please click the below link to view image of tracing.
[2024-09-26 17:53] LABS: BASOPHILS # (AUTO) 0.03 K/uL (0.00-0.20); BASOPHILS % (AUTO) 0.4 % (0.0-5.0); EOSINOPHILS % (AUTO) 1.3 % (0.0-8.0); HEMATOCRIT 38.6 % (42-54); IMMATURE GRANULOCYTE ABSOLUTE 0.03 K/uL (0-1); LYMPHOCYTES # (AUTO) 2.3 K/uL (1.0-4.8); LYMPHOCYTES % (AUTO) 30.2 % (21.0-51.0); MEAN CORPUSCULAR HEMOGLOBIN 30.3 pg (27.0-33.0); MEAN CORPUSCULAR HGB CONC 33.2 g/dL (32.0-36.0); MEAN CORPUSCULAR VOLUME 91.5 fL (79-99); MONOCYTES # (AUTO) 0.6 K/uL (0.1-1.0); MONOCYTES % (AUTO) 7.7 % (3.0-13.0); NEUTROPHILS # (AUTO) 4.6 K/uL (1.8-7.7); PLATELET COUNT (AUTO) 227 K/uL (130-400); RED BLOOD CELL COUNT(AUTO) 4.22 MIL/uL (4.50-6.20); RED CELL DISTRIBUTION WIDTH 14.8 % (11.0-15.5); WHITE BLOOD COUNT (AUTO) 7.7 K/uL (4.8-10.8)
[2024-09-26 18:01] LABS: CREATININE 1.2 mg/dL (0.5-1.3); POTASSIUM 4.5 mmol/L (3.5-5.1)
[2024-09-26 18:11] LABS: ALBUMIN 4.1 g/dL (3.5-5.0); BILIRUBIN,DIRECT 0.2 mg/dL (0.0-0.3); BILIRUBIN,TOTAL 0.5 mg/dL (0.2-1.0); TOTAL PROTEIN, SERUM 7.5 g/dL (6.0-8.3)
[2024-09-26 18:33] LABS: B-TYPE NATRIURETIC PEPTIDE 11 pg/mL (0-100)
--- NOTE | 2024-09-26 19:13 | HMCIMG ---
CT HEAD/BRAIN W/O CONTRAST HISTORY: Dizziness and blurred vision COMPARISON: 09/26/2024 TECHNIQUE: Multiple sequential axial images of the head were obtained from the base of the skull through vertex. Patient was not given contrast through intravenous route. FINDINGS: The ventricles and extraventricular CSF spaces are dilated consistent with cerebral atrophy. Nonspecific white matter changes seen. There is no midline shift, mass effect or herniation. No acute intracranial bleed is seen. Visualized portion of the paranasal sinuses are grossly within normal limits. IMPRESSION: 1. No acute intracranial bleed is seen. 2. Atrophy with white matter changes. CT was performed with one or more following dose reduction techniques: automated exposure control, adjustment of the mA and kv according to patient's size, or use of a iterative reconstruction technique.
[2024-09-26] MEDS: 0.9% NACL 500ML IV.SOLN 500 ML IV SCH (19:20)
[2024-09-26 20:01] LABS: SARS-CoV-2, RNA, NAAT NEGATIVE SARS CoV-2 (NEGATIVE)
[2024-09-26 20:06] LABS: APPEARANCE,URINE CLEAR (CLEAR); BILIRUBIN,URINE NEGATIVE (NEGATIVE); COLOR,URINE LIGHT-YELLOW (YELLOW); GLUCOSE, URINE (UA) NEGATIVE (NEGATIVE); KETONES,URINE NEGATIVE (NEGATIVE); LEUKOCYTE ESTERASE ,URINE NEGATIVE Leu/uL (NEGATIVE); NITRATE,URINE NEGATIVE (NEGATIVE); OCCULT BLOOD,URINE NEGATIVE (NEGATIVE); PROTEIN,URINE NEGATIVE (NEGATIVE); UROBILINOGEN,URINE 0.2 mg/dL (0.2-1.0)
[2024-09-26 20:06] LABS: INFLUENZA TYPE A Negative For Type A (NEGATIVE); INFLUENZA TYPE B Negative For Type B (NEGATIVE)
[2024-09-26 20:08] LABS: ADD UA MICROSCOPIC NO
[2024-09-26 20:28] VITALS: BP 143/74; PULSE 67; RESP 19; TEMP 98.1; O2SAT 97
== END 2024-09-26 20:33 | disposition home or self-care (01) ==
LOC: EDH 17:20
DX: R42 Dizziness and giddiness (principal); E86.0 Dehydration; I10 Essential (primary) hypertension; Z20.822 Contact with and (suspected) exposure to COVID-19; Z79.84 Long term (current) use of oral hypoglycemic drugs; Z79.899 Other long term (current) drug therapy; Z86.73 Personal history of transient ischemic attack (TIA), and cerebral infarction without residual deficits; Z88.5 Allergy status to narcotic agent; Z98.890 Other specified postprocedural states
CPT/HCPCS: 99284; 96360; 70450; 87635; 80076; 84484; 80048; 83880; 85025; 87804 ×2; 81003; 36415; 93005; J7040

== ENCOUNTER 2025-02-04 02:29 | Observation (INO) | payer OTHER, MEDICARE ==
[~2025-02-04] VITALS: Ht 182.9 cm; Wt 77.1 kg
[2025-02-04 03:10] LABS: IMMATURE GRANULOCYTE ABSOLUTE 0.06 K/uL (0-1); NUCLEATED RED BLOOD CELLS 0.0 % (0.0-0.19); PLATELET COUNT (AUTO) 229 K/uL (130-400); RED BLOOD CELL COUNT(AUTO) 4.07 MIL/uL (4.50-6.20); RED CELL DISTRIBUTION WIDTH 15.3 % (11.0-15.5); WHITE BLOOD COUNT (AUTO) 11.7 K/uL (4.8-10.8)
[2025-02-04 03:12] LABS: APPEARANCE,URINE CLEAR (CLEAR); GLUCOSE, URINE (UA) NEGATIVE (NEGATIVE); LEUKOCYTE ESTERASE ,URINE NEGATIVE Leu/uL (NEGATIVE); NITRATE,URINE NEGATIVE (NEGATIVE); OCCULT BLOOD,URINE NEGATIVE (NEGATIVE)
[2025-02-04 03:13] LABS: ADD UA MICROSCOPIC NO
[2025-02-04 03:19] LABS: CREATININE 1.3 mg/dL (0.5-1.3); GLOMERULAR FILTR. RATE CALC 53.0 mL/min (>90); GLUCOSE,RANDOM 173.0 mg/dL (70-105); SODIUM SERUM 142.0 mmol/L (136-145); UREA NITROGEN, BLOOD 43.0 mg/dL (7-18)
[2025-02-04 03:21] LABS: INR 0.98 (0.85-1.15)
[2025-02-04 03:24] LABS: CREATINE KINASE, TOTAL 33.0 U/L (21-232)
--- NOTE | 2025-02-04 03:52 | ERN ---
General Chief Complaint: Dizzy/Light Headed Stated Complaint: LIGHTHEADED Time Seen by MD: 02:31 Source: patient History of Present Illness Initial Comments Patient is a 85-year-old male coming in to be evaluated after he had a confusion generalized weakness which lasted for about 30 minutes. Patient states he feels better now but still little weak. Allergies: Coded Allergies: morphine (Unverified Allergy, Unknown, 06/28/22) Uncoded Allergies: NICOTINIC ACID (Allergy, Unknown, 06/28/22) Home Meds Active Scripts Levofloxacin (Levofloxacin) 500 Mg Tablet, 1 TAB PO DAILY for 10 Days, #10 TAB 0 Refills Prov:SAMI MUSA MD 02/13/24 Atorvastatin Calcium (LIPITOR) 40 Mg Tablet, 40 MG PO HS for 30 Days, #30 TAB 1 Refill Prov:DANIEL JERONIMO Jr., MD 07/13/22 Reported Medications Empagliflozin (Jardiance) 25 Mg Tablet, 1 TAB PO DAILY for 30 Days, #30 TAB 0 Refills 02/12/24 Pregabalin (Pregabalin) 100 Mg Capsule, 1 CAP PO BID MDD 2 Capsule(s) for 30 Days, #60 CAP 0 Refills 02/12/24 Milk Thistle (Milk Thistle) 175 Mg Tablet, 175 MG PO DAILY, TAB 05/23/23 Cholecalciferol (Vitamin D3) (Vitamin D3) 50 Mcg (2000 Unit) Capsule, 50 MCG PO DAILY, CAP 05/23/23 Vitamin B Complex (B Complex) 1 Cap Capsule, 1 CAP PO DAILY, CAP 07/12/22 Allopurinol (Allopurinol) 300 Mg Tablet, 300 MG PO DAILY, TAB 07/12/22 Metoprolol Succinate (Metoprolol Succinate) 25 Mg Tab.er.24h, 25 MG PO DAILY, TAB 07/12/22 Past Medical History Past Medical History: Cancer, Hypertension, Pneumonia, TIA Medical History Other: leukymia Past Surgical History: Other Surgical History Other: 3RD CRAINAL NERVE DECOMPRESSION, RIGHT KNEE, Social History Social History: Negative, Lives with family ROS Dictation CONSTITUTIONAL: No chills, no fever, no weakness, no diaphoresis, malaise. HEAD/FACE: No signs of trauma. EENT: No eye pain, no blurred vision, no tearing, no double vision, no ear pain, no ear discharge, no nose pain, no nasal congestion, no throat pain, no throat swelling, no mouth pain. RESPIRATORY: No cough, no orthopnea, no SOB, no stridor, no wheezing. CARDIOVASCULAR: No chest pain, no edema, no palpitations, no syncope. GASTROINTESTINAL/ABDOMINAL: No abdominal pain, no constipation, no diarrhea, no nausea, no vomiting. GENITOURINARY: No abnormal discharge, no dysuria, no frequent urination, no hematuria. No complaints of pain in the genitals. MUSCULOSKELETAL: No back pain, no gout, no joint pain, no joint swelling, no muscle pain, no muscle stiffness, no neck pain. INTEGUMENTARY: No change in color, no change in hair/nails, no dryness, no lesion, no lumps, no rash. NEUROLOGICAL/PSYCH: No anxiety, not depressed, no emotional problem, no hea dache, no numbness, no pre-existing deficit, no history of seizures, no tremors, no weakness. HEMATOLOGIC/LYMPHATIC: Not anemic, no history of blood clots, no apparent bleeding, no bruising, glands not swollen. All Systems Negative, Except as Noted. Physical Exam Physical Exam Dictation VITAL SIGNS: Reviewed. GENERAL APPEARANCE: Alert, oriented x3, no acute distress, obese. HEAD AND FACE: Non-traumatic. EYES: PERRL, pink conjunctivas, eyelid no trauma, anterior chamber clear. EARS: Pinnas intact and no signs of trauma or erythema. Ear canals clear and no discharge. TMs no erythema. NOSE: No discharge, no bleeding. OROPHARYNX: Mouth normal, teeth no caries, tongue pink. Pharynx clear, no erythema. Tonsils no exudates, no abscesses noted. Mucous membrane moist. NECK: Supple, non-tender, no thyromegaly, no masses, no JVD, no bruits. BREAST: Deferred. CHEST: No tenderness, no crepitus, no paradoxical movement, no retractions. LUNGS: Clear, well-ventilated, symmetric, no rales, no wheezing, no rhonchi, no stridor, good breath sounds bilaterally. HEART: Regular rate, regular rhythm, no murmur, no gallops. VASCULAR: No peripheral edema. ABDOMEN: Soft, positive bowel sounds, nondistended, no guarding, nontender, no rebound, no masses no hepatomegaly, no splenomegaly, no Nino's sign, no hernias. RECTAL: Deferred. GENITAL: Deferred. NEUROLOGICAL: Normal speech, gross motor function intact, gross sensory function intact. MUSCULOSKELETAL: Neck nontender, full range of motion, back nontender, full range of motion. EXTREMITIES: Nontender, full range of motion. SKIN: Color pink, dry, no turgor, no rash, no lacerations, no abrasions, no contusions. LYMPHATICS: Deferred. Results Laboratory and Microbiology Lab and Micro Result Laboratory Tests Test 02/04/25 03:00 02/04/25 03:12 White Blood Count 11.7 K/uL (4.8-10.8) H Red Blood Count 4.07 MIL/uL (4.50-6.20) L Hemoglobin 12.1 g/dL (14.0-18.0) L Hematocrit 35.8 % (42-54) L Mean Corpuscular Volume 88.0 fL (79-99) Mean Corpuscular Hemoglobin 29.7 pg (27.0-33.0) Mean Corpuscular Hemoglobin Concent 33.8 g/dL (32.0-36.0) Red Cell Distribution Width 15.3 % (11.0-15.5) Platelet Count 229 K/uL (130-400) Mean Platelet Volume 10.0 fL (7.5-10.5) Immature Granulocyte % (Auto) 0.5 % (0-1) Neutrophils (%) (Auto) 79.2 % (40.0-77.0) H Lymphocytes (%) (Auto) 13.6 % (21.0-51.0) L Monocytes (%) (Auto) 5.5 % (3.0-13.0) Eosinophils (%) (Auto) 0.9 % (0.0-8.0) Basophils (%) (Auto) 0.3 % (0.0-5.0) Neutrophils # (Auto) 9.3 K/uL (1.8-7.7) H Lymphocytes # (Auto) 1.6 K/uL (1.0-4.8) Monocytes # (Auto) 0.6 K/uL (0.1-1.0) Eosinophils # (Auto) 0.11 K/uL (0.00-0.70) Basophils # (Auto) 0.03 K/uL (0.00-0.20) Absolute Immature Granulocyte (auto 0.06 K/uL (0-1) Nucleated Red Blood Cells 0.0 % (0.0-0.19) Prothrombin Time 10.4 SEC (9.6-11.6) Prothromb Time International Ratio 0.98 (0.85-1.15) Activated Partial Thromboplast Time 24.9 SEC (26.3-35.5) L Urine Color LIGHT-YELLOW (YELLOW) Urine Appearance CLEAR (CLEAR) Urine pH 5.0 (5.0-8.0) Urine Specific [place] 1.020 (1.001-1.031) Urine Protein NEGATIVE mg/dL (NEGATIVE) Urine Glucose (UA) NEGATIVE mg/dL (NEGATIVE) Urine Ketones NEGATIVE mg/dL (NEGATIVE) Urine Occult Blood NEGATIVE (NEGATIVE) Urine Nitrate NEGATIVE (NEGATIVE) Urine Bilirubin NEGATIVE mg/dL (NEGATIVE) Urine Urobilinogen 0.2 mg/dL (0.2-1.0) Urine Leukocyte Esterase NEGATIVE Jyoti/uL Sodium Level 142 mmol/L (136-145) Potassium Level 4.3 mmol/L (3.5-5.1) Chloride Level 104 mmol/L (101-111) Carbon Dioxide Level 27 mmol/L (21-32) Blood Urea Nitrogen 43 mg/dL (7-18) H Creatinine 1.3 mg/dL (0.5-1.3) Glomerular Filtration Rate Calc 53 mL/min (>90) Random Glucose 173 mg/dL (70-105) H Total Calcium 8.7 mg/dL (8.5-10.1) Magnesium Level 2.00 mg/dL (1.80-2.40) Total Creatine Kinase 33 U/L (21-232) Troponin I High Sensitivity 8 ng/L (4-75) B-Type Natriuretic Peptide 17 pg/mL (0-100) Influenza Type A Antigen Negative For Type A Influenza Type B Antigen Negative For Type B SARS-CoV-2, RNA, NAAT NEGATIVE SARS CoV-2 Labs Reviewed?: Yes EKG/XRAY/US/CT/MRI EKG Comment 02/04/2025 time 2:39 a.m. Ventricular rate 75 Sinus [place] [address] wave elevation or depression X-RAY Comment [place] [id number] [place] [id number] IMAGING REPORT Signed PATIENT: SERGIO YEBOAH MR#: [id number] : 1940 SEX: M AGE: 85 LOCATION: [facility] ORDER 2 STATUS: REG ER REPORT#: [id number] SERVICE 0 REASON: cp ORDERING PHYSICIAN: RYAN CAREY MD PROCEDURE: CXR1VW - CHEST 1VW EXAM: CR Chest, 1 view CLINICAL HISTORY: Chest pain. COMPARISON: None provided. FINDINGS: Chronic peripheral pleural plaques and interstitial thickening bilaterally. No pleural effusion or pneumothorax. The cardiomediastinal silhouette is within normal limits. No acute osseous abnormality. IMPRESSION: Chronic peripheral pleural plaques and interstitial thickening bilaterally. Recommend HRCT chest for further evaluation. /[place] DICTATED BY: LOUIS VELAZCO Jr., MD DATE: 02/04/25515 ELECTRONICALLY SIGNED BY: LOUIS VELAZCO Jr., MD DATE: 02/04/25515 CT Scan Comment [facility] [address] IMAGING REPORT Signed PATIENT: SERGIO YEBOAH MR#: [id number] : 1940 SEX: M AGE: 85 LOCATION: ED ORDER 4 STATUS: [facility] ER REPORT#: [id number] SERVICE REASON: AMS, VERTIGO ORDERING PHYSICIAN: RYAN CAREY MD PROCEDURE: HEAD WO - CT HEAD/BRAIN W/O CONTRAST EXAM: CT Head Without IV contrast. CLINICAL HISTORY: AMS, VERTIGO TECHNIQUE: Axial computed tomography images of the head/brain without intravenous contrast. COMPARISON: None provided. FINDINGS: BRAIN: No acute bleed or infarct. Chronic ischemic and atrophic changes. VENTRICLES: No hydrocephalus. ORBITS: The orbits are unremarkable. SINUSES AND MASTOIDS: The paranasal sinuses and mastoid air cells are clear. BONES: No fracture. SOFT TISSUES: Unremarkable. IMPRESSION: No acute bleed or infarct. Chronic ischemic and atrophic changes. /[place] DICTATED BY: BERENICE TALAVERA MD DATE: 02/04/25647 ELECTRONICALLY SIGNED BY: BERENICE TALAVERA MD DATE: 02/04/25647 [facility] MDM: Differential diagnosis: Near-syncope Syncope, generalized body weakness, Rationale: Tests considered and ordered secondary to shared decision making inc lude: labs, ECG and radiology Previous outside records reviewed: Old ER visits. Risk of complication and/or morbidity or mortality of patient management: None Medications-Per medication reconciliation Need for hospitalization: Patient does meet criteria for hospitalization. Need for emergency major/minor surgery: No There are no social concerns with this patient. Prescription drug management Prescriptions will include symptomatic care Patient's prior external medical records from other ER visits were reviewed by me as indicated. Prior testing and results from previous visits were reviewed. Prior tests were taken into account with medical decision making and resource utilization, independent historian/historians were used to obtain complete medical history. I independently interpreted the test that were performed, results were reviewed by me and considered findings on radiology if ordered. Medical management and examination interpretation discussions were had by me with other qualified healthcare professionals as indicated for the patient's care. He will be admitted under the care of hospitalist group for ongoing management ED Course Orders Procedure Category Date Status Time Cbc With Differential LAB 02/04/25 Complete 02:31 Prothrombin Time With LAB 02/04/25 Complete INR 02:31 Chest 1vw RAD 02/04/25 Resulted 02:31 12 Lead Ekg Tracing- EKG 02/04/25 Complete Technical 02:31 Magnesium LAB 02/04/25 Complete 02:31 Creatine Kinase, Total LAB 02/04/25 Complete 02:31 Troponin I High LAB 02/04/25 Complete Sensitivity 02:31 Urinalysis Profile LAB 02/04/25 Complete 02:31 Partial LAB 02/04/25 Complete Thromboplastin Time 02:31 Basic Metabolic Panel LAB 02/04/25 Complete 02:31 Covid Rna Naat LAB 02/04/25 Complete 02:31 Influenza Type A & B, LAB 02/04/25 Complete Rapid 02:31 B-Type Natriuretic LAB 02/04/25 Complete Peptide 02:31 0.9% Nacl 500ml PHA 02/04/25 Complete Iv.Soln (Ns 500ml 04:00 Ct Head/Brain W/O CT 02/04/25 Resulted Contrast 03:54 Current Medications Medications (Trade) Dose Ordered Sig/Naveed Route PRN Reason Start Time Stop Time Status Last Admin Dose Admin Sodium Chloride 500 ml @ 0 mls/hr ONCE ONCE IV 02/04/25 04:00 02/04/25 04:01 DC 02/04/25 04:08 Vital Signs Date Time Temp Pulse Resp B/P (MAP) Pulse Ox O2 Delivery O2 Flow Rate FiO2 02/04/25 05:56 98.8 82 18 128/65 99 Room Air* 0 21 02/04/25 03:06 98.8 75 18 136/67 100 Room Air* 0 21 02/04/25 02:30 98.1 87 16 122/74 97 Room Air 0 DX & DISP Disposition: Inpatient Decision to Admit Time: 06:48 Departure Impression: Primary Impression: Near syncope Additional Impressions: Weakness, AMS (altered mental status) Condition: Stable Referrals: ANASTASIYA JOSHI MD (PCP) RYAN CAREY MD Feb 04, 2025 03:51
[2025-02-04 04:07] LABS: SARS-CoV-2, RNA, NAAT NEGATIVE SARS CoV-2 (NEGATIVE)
[2025-02-04] MEDS: 0.9% NACL 500ML IV.SOLN 500 ML IV ONE (04:08)
[2025-02-04 04:13] LABS: INFLUENZA TYPE A Negative For Type A (NEGATIVE); INFLUENZA TYPE B Negative For Type B (NEGATIVE)
--- NOTE | 2025-02-04 04:17 | HMCIMG ---
EXAM: CR Chest, 1 view CLINICAL HISTORY: Chest pain. COMPARISON: None provided. FINDINGS: Chronic peripheral pleural plaques and interstitial thickening bilaterally. No pleural effusion or pneumothorax. The cardiomediastinal silhouette is within normal limits. No acute osseous abnormality. IMPRESSION: Chronic peripheral pleural plaques and interstitial thickening bilaterally. Recommend HRCT chest for further evaluation. /[place]
--- NOTE | 2025-02-04 05:48 | HMCIMG ---
EXAM: CT Head Without IV contrast. CLINICAL HISTORY: AMS, VERTIGO TECHNIQUE: Axial computed tomography images of the head/brain without intravenous contrast. COMPARISON: None provided. FINDINGS: BRAIN: No acute bleed or infarct. Chronic ischemic and atrophic changes. VENTRICLES: No hydrocephalus. ORBITS: The orbits are unremarkable. SINUSES AND MASTOIDS: The paranasal sinuses and mastoid air cells are clear. BONES: No fracture. SOFT TISSUES: Unremarkable. IMPRESSION: No acute bleed or infarct. Chronic ischemic and atrophic changes. /[place]
--- NOTE | 2025-02-04 06:21 | EKG ---
[facility] Test Date: 2025-02-04 Test Time: 02:39:29 Pat Name: SERGIO YEBOAH Department: ED Room: 118 Gender: M [employer]: [id number] : 1940 Requested By: RYAN CAREY Order Number: [id number] Reading MD: Mickey Boggs Measurements Intervals [place] Rate: 75 P: 21 NM: 152 QRS: -8 QRSD: 80 T: 71 QT: 378 QTc: 424 Interpretive Statements Sinus rhythm Inferior infarct, old Compared to ECG 09/26/2024 17:41:14 Myocardial infarct finding now present Electronically Signed On 02-04-2025 16:34:44 CDT by Mickey Boggs Please click the below link to view image of tracing.
[2025-02-04] MEDS ORDERED: PoTASSium chloRIDE 20MEQ ER 20 MEQ ERTAB PO PRN (08:30)
[2025-02-04] MEDS ORDERED: MAGNESIUM 2GM PREMIX 50ML 50 ML IV PRN (08:30)
[2025-02-04] MEDS ORDERED: PoTASSium chl 10% ELIXIR 20MEQ 20 MEQ/15 ML UDCUP PO PRN (08:30)
--- NOTE | 2025-02-04 08:45 | HP ---
[facility] HISTORY [facility] PHYS[facility] Date of Service: Feb 04, 2025 Time of Service: 08:36 HISTORY OF PRESENT ILLNESS: [This is an 85-year-old male admitted this morning with complaints of dizziness that lasted about 30 minutes. But patient reported that he started noticing yesterday around 18:00H that he was having unsteady gait. He reported that he normally able to walk without a cane inside his house but yesterday he had to lean on his furniture to get from the front house to the back house. also reported that he was confused, he had impaired speech, not making sense when he was talking. Hence, she decided to take him to the ED for further evaluation. Patient has past medical history of leukemia, hypertension, TIA, right Carvalho's palsy. In the emergency department labs drawn, patient has slightly elevated WBC at 11.7, H&H 12.1/35.8 respectively, chemistry were unremarkable except for BUN at 43, creatinine 1.3, glucose 173. Head CT were unremarkable but noted chronic ischemic and atrophic changes. Chest x-ray did show chronic peripheral pleural, plaques and interstitial thickening bilaterally. Recommending HRCT. Patient was seen in ED 14, no other complaints except for generalized weakness. Patient was referred to the hospital for further evaluation management. ] REVIEW OF SYSTEMS CONSTITUTIONAL: Denies fevers, chills, or night sweats. No unintentional weight loss reported. NEUROLOGICAL: Denies headache, amaurosis fugax, motor weakness, sensory deficit, vertigo/spinning sensation, gait abnormalities, or tremors. ENT: No hearing loss, otalgia, otorrhea, rhinitis, rhinorrhea, hoarseness, or sore throat. CARDIOVASCULAR: Denies any exertional angina, dyspnea on exertion, orthopnea, paroxysmal nocturnal dyspnea, palpitations, life-threatening arrhythmias, claudication. PULMONARY: Denies any shortness of breath, cough, phlegm/sputum, hemoptysis, pleuritic chest pain. SLEEP: Denies morning headaches, daytime somnolence or napping. Denies difficulty falling asleep, staying asleep, waking from sleep. Denies knowledge of snoring. GASTROINTESTINAL: Denies any type of dysphagia to either liquids or solids. Denies nausea, vomiting, pyrosis, early satiety, abdominal pain, diarrhea, constipation, or changes in stool consistency or caliber. Denies coffee-ground emesis, hematemesis, hematochezia, or melanotic stools. GENITOURINARY: Denies frequency, urgency, nocturia, hematuria or incontinence (Storage/Irritative symptoms.) Low urinary stream, straining to void, urinary intermittency or hesitancy, splitting of the voiding stream, terminal dribbling. ENDOCRINOLOGIC: Denies polyuria, polydipsia, polyphagia or heat/cold intolerances. HEMATOLOGIC: Denies thrombophilia/previous clots, or coagulopathy/bleeding disorders. ONCOLOGIC: Denies personal history of malignancy. DERMATOLOGIC: Denies rashes or pruritus. PSYCHIATRIC: Denies any suicidal or homicidal ideation. Denies hallucinations. PAST MEDICAL HISTORY: [Leukemia, hypertension, pneumonia, TIA, cerebral palsy ] PAST SURGICAL HISTORY: [Right knee surgery, 3rd cranial nerve decompression ] PAST SOCIAL HISTORY: [Denies tobacco, alcohol or illicit drug use ] FAMILY HISTORY: [noncontributory ] Coded Allergies: morphine (Unverified Allergy, Unknown, 06/28/22) Uncoded Allergies: NICOTINIC ACID (Allergy, Unknown, 06/28/22) PHYSICAL EXAM GENERAL APPEARANCE: The patient is awake, alert, and oriented, in no acute cardiopulmonary distress. NEUROLOGICAL: Cranial nerves II-XII grossly intact. Motor is 5/5 in bilateral upper and lower extremities proximal to distal. No sensory deficits. HEENT: Face is symmetric. Pupils are equal and reactive. Extraocular movements are intact. NECK: Supple. No JVD. No thyromegaly. No submental, submandibular, pre- /postauricular, occipital or supraclavicular lymphadenopathy. CHEST: Normal chest expansion. No Telemetry. LUNGS: Absence of any rales, rhonchi or any wheezing. CARDIOVASCULAR: Regular. S1 and S2 normal. No appreciable rubs, murmurs or gallops. ABDOMEN: Soft, nontender, and nondistended. There is no rebound, voluntary guarding, or rigidity. : Deferred. No Bennett. EXTREMITIES: Non-edematous and not cyanotic. No clubbing. Good capillary refill. SKIN: No skin breakdown. Vital Sign (Last 24 Hours) 02/04/25 08:14 Temp 98.1 Pulse 85 Resp 18 B/P (MAP) 142/75 Pulse Ox 99 O2 Delivery Room Air* O2 Flow Rate 0 FiO2 21 LABS: Laboratory: Test 02/04/25 03:12 02/04/25 03:00 Range/Units Influenza Type A Antigen Negative For Type A NEGATIVE Influenza Type B Antigen Negative For Type B NEGATIVE SARS-CoV-2, RNA, NAAT NEGATIVE SARS CoV-2 NEGATIVE White Blood Count 11.7 H 4.8-10.8 K/uL Red Blood Count 4.07 L 4.50-6.20 MIL/uL Hemoglobin 12.1 L 14.0-18.0 g/dL Hematocrit 35.8 L 42-54 % Mean Corpuscular Volume 88.0 79-99 fL Mean Corpuscular Hemoglobin 29.7 27.0-33.0 pg Mean Corpuscular Hemoglobin Concent 33.8 32.0-36.0 g/dL Red Cell Distribution Width 15.3 11.0-15.5 % Platelet Count 229 130-400 K/uL Mean Platelet Volume 10.0 7.5-10.5 fL Immature Granulocyte % (Auto) 0.5 0-1 % Neutrophils (%) (Auto) 79.2 H 40.0-77.0 % Lymphocytes (%) (Auto) 13.6 L 21.0-51.0 % Monocytes (%) (Auto) 5.5 3.0-13.0 % Eosinophils (%) (Auto) 0.9 0.0-8.0 % Basophils (%) (Auto) 0.3 0.0-5.0 % Neutrophils # (Auto) 9.3 H 1.8-7.7 K/uL Lymphocytes # (Auto) 1.6 1.0-4.8 K/uL Monocytes # (Auto) 0.6 0.1-1.0 K/uL Eosinophils # (Auto) 0.11 0.00-0.70 K/uL Basophils # (Auto) 0.03 0.00-0.20 K/uL Absolute Immature Granulocyte (auto 0.06 0-1 K/uL Nucleated Red Blood Cells 0.0 0.0-0.19 % Prothrombin Time 10.4 9.6-11.6 SEC Prothromb Time International Ratio 0.98 0.85-1.15 Activated Partial Thromboplast Time 24.9 L 26.3-35.5 SEC Urine Color LIGHT-YELLOW YELLOW Urine Appearance CLEAR CLEAR Urine pH 5.0 5.0-8.0 Urine Specific [place] 1.020 1.001-1.031 Urine Protein NEGATIVE NEGATIVE mg/dL Urine Glucose (UA) NEGATIVE NEGATIVE mg/dL Urine Ketones NEGATIVE NEGATIVE mg/dL Urine Occult Blood NEGATIVE NEGATIVE Urine Nitrate NEGATIVE NEGATIVE Urine Bilirubin NEGATIVE NEGATIVE mg/dL Urine Urobilinogen 0.2 0.2-1.0 mg/dL Urine Leukocyte Esterase NEGATIVE NEGATIVE Jyoti/uL Sodium Level 142 136-145 mmol/L Potassium Level 4.3 3.5-5.1 mmol/L Chloride Level 104 101-111 mmol/L Carbon Dioxide Level 27 21-32 mmol/L Blood Urea Nitrogen 43 H 7-18 mg/dL Creatinine 1.3 0.5-1.3 mg/dL Glomerular Filtration Rate Calc 53 >90 mL/min Random Glucose 173 H 70-105 mg/dL Hemoglobin A1c 6.9 H 4.0-6.0 % Estimated Average Glucose (eAG) 151 H 70-126 mg/dL Total Calcium 8.7 8.5-10.1 mg/dL Magnesium Level 2.00 1.80-2.40 mg/dL Total Creatine Kinase 33 21-232 U/L Troponin I High Sensitivity 8 4-75 ng/L B-Type Natriuretic Peptide 17 0-100 pg/mL Current Medications Medications (Trade) Dose Ordered Sig/Naveed Route PRN Reason Start Time Stop Time Status Last Admin Dose Admin Acetaminophen (TYLenol 325MG TAB) 650 mg Q4H PRN PO TEMPERATURE GREATER THAN 101.5 02/04/25 08:30 03/06/25 08:29 Acetaminophen (TYLenol 325MG TAB) 650 mg Q6H PRN PO MILD PAIN (1-3) 02/04/25 08:30 03/06/25 08:29 Magnesium Sulfate 50 ml @ 0 mls/hr PROTOCOL PRN IV MAGNESIUM PROTOCOL 02/04/25 08:30 03/06/25 08:29 Ondansetron HCl (zoFRAN 4MG INJ) 4 mg Q6H PRN IVP NAUSEA/VOMITING 02/04/25 08:30 03/06/25 08:29 Potassium Chloride 100 ml @ 100 mls/hr AD PRN IV POTASSIUM PROTOCOL 02/04/25 08:30 03/06/25 08:29 Potassium Chloride (K-Dur/Klor-Con 20meq) 20 meq AD PRN PO POTASSIUM PROTOCOL 02/04/25 08:30 03/06/25 08:29 Potassium Chloride (KCl 10% Elixir 20meq/15ml) 20 meq AD PRN PO POTASSIUM PROTOCOL 02/04/25 08:30 03/06/25 08:29 Sodium Chloride 1,000 ml @ 75 mls/hr [id number] IV 02/04/25 08:30 03/06/25 08:29 DIAGNOSTICS / RADIOLOGY: [[facility] [address] [place], [place] [address] IMAGING REPORT Signed PATIENT: SERGIO YEBOAH MR#: [id number] : 1940 SEX: M AGE: 85 LOCATION: [facility] ORDER 4 STATUS: REG ER REPORT#: [id number] SERVICE 3 REASON: AMS, VERTIGO ORDERING PHYSICIAN: RYAN CAREY MD PROCEDURE: HEAD WO - CT HEAD/BRAIN W/O CONTRAST EXAM: CT Head Without IV contrast. CLINICAL HISTORY: AMS, VERTIGO TECHNIQUE: Axial computed tomography images of the head/brain without intravenous contrast. COMPARISON: None provided. FINDINGS: BRAIN: No acute bleed or infarct. Chronic ischemic and atrophic changes. VENTRICLES: No hydrocephalus. ORBITS: The orbits are unremarkable. SINUSES AND MASTOIDS: The paranasal sinuses and mastoid air cells are clear. BONES: No fracture. SOFT TISSUES: Unremarkable. IMPRESSION: No acute bleed or infarct. Chronic ischemic and atrophic changes. /[place] DICTATED BY: BERENICE TALAVERA MD DATE: 02/04/25647 ELECTRONICALLY SIGNED BY: BREENICE TALAVERA MD DATE: 02/04/25647 [facility] [address] [place] [address] IMAGING REPORT Signed PATIENT: SERGIO YEBOAH MR#: [id number] : 1940 SEX: M AGE: 85 LOCATION: [facility] ORDER 2 STATUS: REG ER REPORT#: [id number] SERVICE 0231 REASON: cp ORDERING PHYSICIAN: RYAN CAREY MD PROCEDURE: CXR1VW - CHEST 1VW EXAM: CR Chest, 1 view CLINICAL HISTORY: Chest pain. COMPARISON: None provided. FINDINGS: Chronic peripheral pleural plaques and interstitial thickening bilaterally. No pleural effusion or pneumothorax. The cardiomediastinal silhouette is within normal limits. No acute osseous abnormality. IMPRESSION: Chronic peripheral pleural plaques and interstitial thickening bilaterally. Recommend HRCT chest for further evaluation. /[place] DICTATED BY: LOUIS VELAZCO Jr., MD DATE: 02/04/25515 ELECTRONICALLY SIGNED BY: LOUIS VELAZCO Jr., MD DATE: 02/04/25515 ] ASSESSMENT: [Near syncope, POA Suspected TIA, POA Mild Leukocytosis, POA Elevated BUN, POA Hyperglycemia, POA ] PLAN: [Patient will be admitted under observation to medical floor Patient can have regular heart healthy diet Will monitor electrolytes and replete as necessary Patient can have IV fluids with NS at 75 mL/h We will request hemoglobin A1c to rule out diabetes, blood sugar was elevated at 173, Lipid panel and LFT's now We will start ASA and statins We will order imaging US Carotid duplex, MRI, 2DECHO We will order request Neuro consult for suspected TIA For weakness, we will request physical therapy to evaluate and treat We will repeat labs tomorrow GI and DVT prophylaxis Patient is a full code ADVANCED CARE PLANNING 1. Which of the following were discussed? Hospice Care - Yes / No Therapeutic options - Yes / No Advance Directives - Yes / No Other discussions - 2. Discussed with who? Patient 3. Voluntary nature of this service was explained to the patient? Yes / No 4. Amount of time spent - ___20 mins____ 5. Reviewed by Physician? (if this service was performed by NPP) Yes / No ] ATTESTATION BY PHYSICIAN I have seen and examined the patient. I reviewed the documentation, medical decision making, and treatment plan as noted by the mid-level provider above. I agree with the findings and plan of care. JACQUELINE CORONEL MD, [facility] Feb 04, 2025 08:45
[2025-02-04] MEDS: 0.9%NACL 1000ML 1,000 ML IV SCH (09:25)
[2025-02-04] MEDS: FAMOTIDINE 20MG TAB PO SCH (09:37)
--- NOTE | 2025-02-04 10:08 | NUR ---
DCP: HOME Pt and his Haley Rollins [phone] reside at [facility] in a park model. states they just completed the remodel of home to make it handicapped accessible. Couple has a walk in shower with built bench and grab bars. Pt is independent of all his ADLS, drives, and uses a walker with seat as needed. Couple has no in home care services. Pt is at seen at local [facility] by Dr Nelson Cordero for medical care and meds. Pt states he is going back home at [place]. Addendum: 02/04/25 at 1015 by KARLOS RIVERA Amended: Links added.
[2025-02-04 10:51] VITALS: O2SAT 97
--- NOTE | 2025-02-04 10:51 | NUR ---
PATIENT ARRIVED TO THE UNIT NO SIGNS OF DISTRESS NOTED. IV FLUID CONNECTED. SCDS APPLIED. PATIENT AND SPOUSE ORIENTED TO THE ROOM. BED LOW AND LOCKED WITH CALL LIGHT IN REACH
[2025-02-04 11:03] LABS: ASPARTATE AMINOTRANSFERASE 19.0 U/L (10-37); LDL DIRECT 85.0 mg/dL (0-99); TOTAL PROTEIN, SERUM 7.1 g/dL (6.0-8.3)
[2025-02-04] MEDS: ASPIRIN 81MG CHEW TAB PO ONE (11:15)
[2025-02-04 12:00] VITALS: BP 141/72; PULSE 98; RESP 17; TEMP 98.1
--- NOTE | 2025-02-04 16:13 | HMCSR ---
APPROVED REPORT EXAM: Two-dimensional and M-mode echocardiogram with Doppler and color Doppler. INDICATION ICD: CVA Contrast Details Indication: Rule out PFO Agent/Amount Used: Agitated Saline 2D Dimensions RVDd4.9 cmLVEF(%)48.6 (>50%)LVED Vol(simp.)97.0 mL IVSd1.0 (0.7-1.1cm)FS(%)25 %LVES Vol(simp.)33.0 mL LVDd5.0 (3.8-5.6cm)LA (2D)4.7 (1.6-4.0cm)LVEF(%, simp.)66 % PWd0.8 (0.7-1.1cm)Ao Root(2D)3.4 (2.0-3.7cm)LA ESV INDEX (BP)45.67 mL/m2 IVSs0.8 cmLVOT diam2.1 (1.8-2.4cm) LVDs3.8 (2.5-4.0cm) PWs1.4 cm M-Mode Dimensions EPSS0.4 cm LA (MM)4.9 (1.6-4.0cm) Ao Root(MM)3.2 (2.0-3.7cm) Aortic Valve AoV Vmax1.5 m/Zackary Peak GR9.1 mmHgLVOT Vmax0.9 m/s AoV VTI0.3 mAo Mean GR5.1 mmHgLVOT VTI0.18 m DORETHA (VMAX)1.94 cm2AVA (VTI) 2.1 cm2 Mitral Valve MV E Vmax65.7 cm/sDECEL Dzib503 ms MV A Vmax96.7 cm/sP 1/2 T48 ms E/A ratio0.7MVA (PHT)4.6 cm2 TDI E/E' Ghdpma57.1E/E' Oixnsrn78.4 Medial E' Peak V4.66 cm/sLateral E' Peak V6.31 cm/s Pulmonary Valve PV Vmax1.1 m/sPV VTI0.21 mPV Mean GR2.2 mmHg PV Peak GR5.2 mmHg Tricuspid Valve TR Vmax2.4 m/sRAP (EST) 3 poZzICEW14.3 mmHg TR Peak GR25.3 mmHg Left Ventricle The left ventricle is normal size. There is normal LV segmental wall motion. Mild concentric left ilana tricular hypertrophy. LVEF is 60-65%. Indeterminate diastolic dysfunction. Right Ventricle The right ventricle is mildly dilated. The right ventricular systolic function is normal. Atria The left atrium is moderately dilated. No evidence of PFO/ASD by agitated saline. The right atrium si ze is normal. Aortic Valve The aortic valve is normal in structure. No aortic regurgitation is present. There is no aortic valvu lar stenosis. Mitral Valve The mitral valve is normal in structure. There is trace mitral valve regurgitation noted. There is no mitral valve stenosis. Tricuspid Valve The tricuspid valve is normal in structure. There is trace tricuspid valve regurgitation noted. Pulmonic Valve Pulmonic valve is not well visualized. There is no pulmonic valvular regurgitation. Great Vessels The aortic root is normal in size. The IVC is normal in size and collapses >50% with inspiration. Pericardium There is no pericardial effusion. Other Information Quality : Fair Conclusion The left ventricle is normal size. LVEF is 60-65% with normal LV segmental wall motion. Mild concentric left ventricular hypertrophy. Indeterminate diastolic dysfunction. The right ventricular systolic function is normal. The left atrium is moderately dilated. suboptimial bubble study but there is no PFO/ASD by agitated s gordo. No hemodynamically significant valvular abnormalities. There is no pericardial effusion.
[2025-02-04] MEDS ORDERED: TIOT18CA3 IH (16:56)
[2025-02-04] MEDS ORDERED: CLOP75TA32 PO (16:56)
[2025-02-04] MEDS ORDERED: FINA5TAB41 PO (16:56)
[2025-02-04] MEDS ORDERED: METF-444 PO (16:56)
[2025-02-04] MEDS ORDERED: TAMS-55 PO (16:56)
[2025-02-04 19:05] VITALS: BP 145/75; PULSE 80; RESP 17; TEMP 97.4
--- NOTE | 2025-02-04 19:28 | CONS ---
CONSULTATION NOTE Date of Service: Feb 04, 2025 Reason for Consultation: Eval of aphasia Requesting Physician: Dr. Mead HISTORY OF PRESENT ILLNESS: Mr. Rollins is an 85-year-old right-handed male with a history of atrial fibrillation, hypertension, hyperlipidemia, and peripheral neuropathy presenting to the hospital after an episode of confusion and balance problems that occurred 2 days prior to admission. Two days ago, while at home in the afternoon, the patient was walking down the chin when he suddenly lost his balance and had to grab onto surfaces to remain upright. During this episode, he became confused and was speaking in sentences that did not make sense, described by his aeronautics commission director as "mumbling words" and making sentences that were incomprehensible. The patient was aware that something was wrong but did not know what was happening. He denies losing consciousness during the episode. The confusion and speech difficulties lasted approximately 30 minutes. He denies any right-sided or left-sided weakness or numbness during this 30-minute period, though he notes he has baseline neuropathy. The patient and his aeronautics commission director came to the emergency room the same day the episode occurred. The patient has no history of stroke or heart attack. His atrial fibrillation an d hypertension are controlled with medications including Eliquis and what he refers to as "Andides." His cholesterol levels are reported to be in the normal range. Medical History - Atrial fibrillation - Hypertension, controlled - Hyperlipidemia, controlled - Peripheral neuropathy Medications and Supplements - Eliquis for atrial fibrillation - Andides for high blood pressure - Clopidogrel Social History - Living Situation: Lives with spouse who was present during the episode and accompanied him to the hospital Review of Systems Musculoskeletal: Positive for neuropathy. Neurological: Negative for right-sided weakness, left-sided weakness, right- sided numbness. REVIEW OF SYSTEMS CONSTITUTIONAL: Denies fever, chills, or fatigue. HEAD/FACE: No signs of trauma. EENT: Denies eye pain, blurred vision, double vision, or light sensitivity. RESPIRATORY: Denies shortness of breath, cough, wheezing CARDIOVASCULAR: Denies chest pain, palpitation, syncope GASTROINTESTINAL/ABDOMINAL: Denies abdominal pain, constipation, diarrhea, nausea or vomiting GENITOURINARY: Denies dysuria or hematuria. MUSCULOSKELETAL: Denies joint pain, tenderness, or trauma. INTEGUMENTARY: Denies rash or itchiness NEUROLOGICAL/PSYCH: Denies anxiety, depression, heat or cold intolerance. PAST MEDICAL HISTORY: as above PAST SURGICAL HISTORY: as above PAST SOCIAL HISTORY: No tobacco, alcohol or rec drug abuse FAMILY HISTORY: none Coded Allergies: morphine (Unverified Allergy, Unknown, 06/28/22) Uncoded Allergies: NICOTINIC ACID (Allergy, Unknown, 06/28/22) PHYSICAL EXAM EYES: Anicteric. Pupils equal and reactive. HENT: No oral thrush seen, moist Oral mucosa NECK: Supple, no JVD or thyromegaly. LUNGS: Good air entry. No rales, no rhonchi. CARDIOVASCULAR: S1, S2 regular. No murmur heard. ABDOMEN: Soft, non tender, bowel sounds present, no organomegaly CENTRAL NERVOUS SYSTEM: Awake, alert, oriented x 3. No focal deficits. SKIN: No rashes, no swelling. LYMPHATICS: No peripheral lymphadenopathy MUSCULOSKELETAL: No joint swelling, erythema or tenderness. EXTREMITIES: No cyanosis or clubbing BACK: No deformity, no pressure ulcer. GENITOURINARY: No dysuria or hematuria NIHSS: 0 Vital Sign (Last 24 Hours) 02/04/25 02/04/25 10:51 19:05 Temp 97.3 Pulse 80 Resp 17 B/P (MAP) 145/75 Pulse Ox 99 O2 Delivery Room Air O2 Flow Rate 0 FiO2 21 LABS: Laboratory: Test 02/04/25 03:12 02/04/25 03:00 Range/Units Influenza Type A Antigen Negative For Type A NEGATIVE Influenza Type B Antigen Negative For Type B NEGATIVE SARS-CoV-2, RNA, NAAT NEGATIVE SARS CoV-2 NEGATIVE White Blood Count 11.7 H 4.8-10.8 K/uL Red Blood Count 4.07 L 4.50-6.20 MIL/uL Hemoglobin 12.1 L 14.0-18.0 g/dL Hematocrit 35.8 L 42-54 % Mean Corpuscular Volume 88.0 79-99 fL Mean Corpuscular Hemoglobin 29.7 27.0-33.0 pg Mean Corpuscular Hemoglobin Concent 33.8 32.0-36.0 g/dL Red Cell Distribution Width 15.3 11.0-15.5 % Platelet Count 229 130-400 K/uL Mean Platelet Volume 10.0 7.5-10.5 fL Immature Granulocyte % (Auto) 0.5 0-1 % Neutrophils (%) (Auto) 79.2 H 40.0-77.0 % Lymphocytes (%) (Auto) 13.6 L 21.0-51.0 % Monocytes (%) (Auto) 5.5 3.0-13.0 % Eosinophils (%) (Auto) 0.9 0.0-8.0 % Basophils (%) (Auto) 0.3 0.0-5.0 % Neutrophils # (Auto) 9.3 H 1.8-7.7 K/uL Lymphocytes # (Auto) 1.6 1.0-4.8 K/uL Monocytes # (Auto) 0.6 0.1-1.0 K/uL Eosinophils # (Auto) 0.11 0.00-0.70 K/uL Basophils # (Auto) 0.03 0.00-0.20 K/uL Absolute Immature Granulocyte (auto 0.06 0-1 K/uL Nucleated Red Blood Cells 0.0 0.0-0.19 % Prothrombin Time 10.4 9.6-11.6 SEC Prothromb Time International Ratio 0.98 0.85-1.15 Activated Partial Thromboplast Time 24.9 L 26.3-35.5 SEC Urine Color LIGHT-YELLOW YELLOW Urine Appearance CLEAR CLEAR Urine pH 5.0 5.0-8.0 Urine Specific [place] 1.020 1.001-1.031 Urine Protein NEGATIVE NEGATIVE mg/dL Urine Glucose (UA) NEGATIVE NEGATIVE mg/dL Urine Ketones NEGATIVE NEGATIVE mg/dL Urine Occult Blood NEGATIVE NEGATIVE Urine Nitrate NEGATIVE NEGATIVE Urine Bilirubin NEGATIVE NEGATIVE mg/dL Urine Urobilinogen 0.2 0.2-1.0 mg/dL Urine Leukocyte Esterase NEGATIVE NEGATIVE Jyoti/uL Sodium Level 142 136-145 mmol/L Potassium Level 4.3 3.5-5.1 mmol/L Chloride Level 104 101-111 mmol/L Carbon Dioxide Level 27 21-32 mmol/L Blood Urea Nitrogen 43 H 7-18 mg/dL Creatinine 1.3 0.5-1.3 mg/dL Glomerular Filtration Rate Calc 53 >90 mL/min Random Glucose 173 H 70-105 mg/dL Hemoglobin A1c 6.9 H 4.0-6.0 % Estimated Average Glucose (eAG) 151 H 70-126 mg/dL Total Calcium 8.7 8.5-10.1 mg/dL Magnesium Level 2.00 1.80-2.40 mg/dL Total Bilirubin 0.4 0.2-1.0 mg/dL Direct Bilirubin 0.1 0.0-0.3 mg/dL Aspartate Amino Transf (AST/SGOT) 19 10-37 U/L Alanine Aminotransferase (ALT/SGPT) 21 12-78 U/L Alkaline Phosphatase 78 50-136 U/L Total Creatine Kinase 33 21-232 U/L Troponin I High Sensitivity 8 4-75 ng/L B-Type Natriuretic Peptide 17 0-100 pg/mL Total Protein 7.1 6.0-8.3 g/dL Albumin 4.0 3.5-5.0 g/dL Triglycerides Level 110 30-200 mg/dL Cholesterol Level 145 # <200 mg/dL LDL Cholesterol 85 0-99 mg/dL HDL Cholesterol 40 29-71 mg/dL DIAGNOSTICS / RADIOLOGY: MRI brain: negative . carotid u/s: pending ASSESSMENT / PLAN: Mr. Rollins is an 85-year-old male with history of atrial fibrillation, hypertension, and hyperlipidemia who presented 2 days ago with acute onset confusion and balance issues lasting 30 minutes. Transient ischemic attack Assessment: Patient experienced an episode 2 days ago characterized by sudden loss of balance requiring support and altered speech with confusing, nonsensical sentences lasting approximately 30 minutes. No focal neurological deficits were reported during the episode, and patient remained conscious throughout. MRI brain performed today was negative for acute stroke. Physical examination shows no residual neurological deficits. Given the transient nature of symptoms with complete resolution and negative imaging, this represents a transient ischemic attack. Plan: - Continue current anticoagulation with Eliquis - Continue Clopidogrel - Carotid ultrasound pending results - Echocardiogram completed showing left atrial enlargement but no intracardiac thrombus - Observation for 24 hours with discharge planned if stable - Physical therapy and occupational therapy evaluation for safety assessment prior to discharge - PT services through [place] planned for muscle mass Hyperlipidemia Assessment: LDL cholesterol elevated at 85 mg/dL in the setting of recent TIA, indicating suboptimal lipid control for secondary stroke prevention. Plan: - Monitor cholesterol levels Atrial fibrillation Assessment: Known atrial fibrillation with appropriate anticoagulation. Echocardiogram shows left atrial enlargement consistent with known atrial fibrillation but no evidence of intracardiac thrombus. Plan: - Continue Eliquis Hypertension Assessment: Hypertension reportedly controlled with current medications. Plan: - Continue current antihypertensive regimen Peripheral neuropathy Assessment: Patient reports history of neuropathy, though no acute changes noted during recent episode. Plan: - No acute intervention discussed Thank you for your consultation. I will sign off. DAYNA GRIFFIN MD Feb 04, 2025 19:28
[2025-02-04] MEDS ORDERED: APIX2.5T PO (20:33)
[2025-02-04 21:00] VITALS: BP 160/80; PULSE 83; RESP 18; TEMP 97.6; O2SAT 94
--- NOTE | 2025-02-04 23:27 | HMCIMG ---
CT CHEST WITHOUT IV CONTRAST Clinical History: Chronic peripheral pleural plaques and interstitial thickening bilaterally. Technique: Axial computed tomography images of the chest without intravenous contrast. Comparison: CR - CHEST 1VW - 02/04/25 03:07 EDT Findings: Lungs: Minimal subpleural lung scarring with early honeycombing is noted in the bilateral lower lobes. No pulmonary mass is identified. The remainder of the lung parenchyma appears essentially clear. Pleural Spaces: Diffuse pleural plaques are seen involving the peripheral pleural surfaces, diaphragmatic pleural surfaces, and mediastinal pleural surfaces, measuring up to a maximum thickness of 1.5 cm. No pneumothorax is evident. No pleural effusions are present. Heart: No cardiomegaly. No significant pericardial effusion. Lymph Nodes: No lymphadenopathy is evident. Upper Abdomen: The upper abdominal solid organs are unremarkable. Bones: No acute osseous abnormality. IMPRESSION: 1. Diffuse pleural plaques, up to 1.5 cm thick, involving peripheral, diaphragmatic, and mediastinal pleural surfaces. 2. Minimal subpleural lung scarring with early honeycombing in bilateral lower lobes. 3. No acute findings. 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 characterised by diffuse pleural plaques and basal subpleural fibrosis with early honeycombing. Recommendation: Correlate with occupational history and exposure duration. Consider HRCT chest for fibrosis pattern characterisation. /[place]
[2025-02-04] MEDS: MAG/ALUM/SIMETH 30 ML UDCUP PO ONE (23:34)
[2025-02-05] VITALS: BP 136/75; PULSE 86; RESP 18; TEMP 98
--- NOTE | 2025-02-05 03:11 | NUR ---
Medications taken to pharmacy and belongings with security.
[2025-02-05 04:00] VITALS: BP 145/74; PULSE 74; RESP 16; TEMP 97.4
[2025-02-05 04:00] LABS: NUCLEATED RED BLOOD CELLS 0.0 % (0.0-0.19); PLATELET COUNT (AUTO) 217.0 K/uL (130-400); RED BLOOD CELL COUNT(AUTO) 4.02 MIL/uL (4.50-6.20); RED CELL DISTRIBUTION WIDTH 15.4 % (11.0-15.5); WHITE BLOOD COUNT (AUTO) 7.4 K/uL (4.8-10.8)
[2025-02-05 04:19] LABS: CREATININE 1.3 mg/dL (0.5-1.3); GLOMERULAR FILTR. RATE CALC 53.0 mL/min (>90); GLUCOSE,RANDOM 153.0 mg/dL (70-105); SODIUM SERUM 141.0 mmol/L (136-145); UREA NITROGEN, BLOOD 33.0 mg/dL (7-18)
--- NOTE | 2025-02-05 07:28 | HMCIMG ---
EXAMINATION: DUPLEX ULTRASOUND EXAMINATION OF THE BILATERAL CAROTID AND VERTEBRAL ARTERIES. CLINICAL HISTORY: To rule out CVA. COMPARISON: None provided. TECHNIQUE: Real-time ultrasound scan of the bilateral carotid and vertebral arteries, 2-D grayscale, with color Doppler flow and spectral waveform analysis. FINDINGS: Color and spectral Doppler interrogation of the carotid vessels on the right demonstrate peak systolic velocities as follows: CCA (Proximal, mid, and distal): 86, 58, and 48 cm/s respectively. Bulb: 44 cm/s. ECA: 70 cm/s. ICA (Proximal, mid, and distal): 48, 80, and 73 cm/s respectively. Vertebral artery demonstrates antegrade flow: 22 cm/s. Right ICA/CCA ratio: 0.9 Peak systolic velocities on the left are as follows: CCA (Proximal, mid, and distal): 59, 73, and 57 cm/s respectively. Bulb: 62 cm/s. ECA: 112 cm/s. ICA (Proximal, mid, and distal): 55, 53, and 67 cm/s respectively. Vertebral artery demonstrates antegrade flow: 42 cm/s. Left ICA/CCA ratio: 1.1 Both the common carotid arteries and their branches reveal mild intimal thickening. There is a calcified plaque in the right proximal external carotid artery causing about 30% to 40% diameter stenosis. There is a calcified plaque in the left bulb causing about 20% to 30% diameter stenosis. There is a soft plaque in the left proximal external carotid artery causing about 20% to 30% diameter stenosis. IMPRESSION: Mild intimal thickening in the bilateral carotid arteries and their branches. Plaques as described. There is no significant flow limiting lesions in the remainder of the arteries. /[place]
[2025-02-05 08:00] VITALS: BP 152/80; PULSE 77; RESP 18; TEMP 97.4; O2SAT 98
[2025-02-05] MEDS: ASPIRIN 81MG CHEW TAB PO SCH (09:00)
--- NOTE | 2025-02-05 11:44 | HMCIMG ---
EXAM: MR Brain with Brain Stem without IV Contrast CLINICAL HISTORY: CVA. TECHNIQUE: Multiplanar multi-sequence MRI of the brain. CONTRAST: None. COMPARISON: CT dated February 04, 2025. FINDINGS: There is generalized prominence of the sulci, gyri and cisternal spaces with mild dilatation of the ventricular system ??? suggestive of age-related diffuse neuro-parenchymal atrophy. Chronic ischemic changes in bilateral subcortical and paraventricular deep white matter. No evidence of acute cortical infarction, hemorrhage, mass or mass effect. The ventricular system is normal in size, shape, and contour. No hydrocephalus. No abnormal extra-axial fluid collection is present. The marrow signal within the skull base and calvarium is intact. The paranasal sinuses and mastoid air cells are clear. IMPRESSION: 1. No acute intracranial abnormality or mass. 2. Brain stem is normal. 3. Diffuse age-related neuro-parenchymal atrophy with chronic ischemic changes in bilateral subcortical and paraventricular deep white matter. Compared to the previous CT dated February 04, 2025, no significant interval change. /[place]
[2025-02-05 12:01] VITALS: BP 130/74; PULSE 80; RESP 18; TEMP 97.4
--- NOTE | 2025-02-05 12:19 | PN ---
[facility] PROGRESS NOTE Date of Service: Feb 05, 2025 Time of Service: 12:17 SUBJECTIVE: 02/05 patient is seen and examined at bedside, case discussed with the RN, no acute events overnight, the time of my visit patient comfortably in bed, alert oriented x3, denies chest pain, shortness shortness for breath, no nausea, no vomiting, no abdominal discomfort. 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 I explained to him that he will need to follow up as an outpatient with his PCP for referral to a educational adviser. He is in agreement. Results of brain MRI no acute intracranial abnormality, brainstem is normal, patient already evaluated by neurologist, likely TIA, patient is started on Plavix and Eliquis. Noted to have low hemoglobin today Of 11.9 with a hematocrit 35.2. He had a bowel movement this morning, no blood noted. It was not black. We will check stool occult blood, iron level panel, CBC in a.m., if stable okay for the patient to be discharged home and follow up as an outpatient with PCP. Patient in agreement. REVIEW OF SYSTEMS CONSTITUTIONAL: Denies fevers, chills, or night sweats. No unintentional weight loss reported. NEUROLOGICAL: Denies headache, amaurosis fugax, motor weakness, sensory deficit, vertigo/spinning sensation, gait abnormalities, or tremors. ENT: No hearing loss, otalgia, otorrhea, rhinitis, rhinorrhea, hoarseness, or sore throat. CARDIOVASCULAR: Denies any exertional angina, dyspnea on exertion, orthopnea, paroxysmal nocturnal dyspnea, palpitations, life-threatening arrhythmias, claudication. PULMONARY: Denies any shortness of breath, cough, phlegm/sputum, hemoptysis, pleuritic chest pain. SLEEP: Denies morning headaches, daytime somnolence or napping. Denies difficulty falling asleep, staying asleep, waking from sleep. Denies knowledge of snoring. GASTROINTESTINAL: Denies any type of dysphagia to either liquids or solids. Denies nausea, vomiting, pyrosis, early satiety, abdominal pain, diarrhea, constipation, or changes in stool consistency or caliber. Denies coffee-ground emesis, hematemesis, hematochezia, or melanotic stools. GENITOURINARY: Denies frequency, urgency, nocturia, hematuria or incontinence (Storage/Irritative symptoms.) Low urinary stream, straining to void, urinary intermittency or hesitancy, splitting of the voiding stream, terminal dribbling. ENDOCRINOLOGIC: Denies polyuria, polydipsia, polyphagia or heat/cold intolerances. HEMATOLOGIC: Denies thrombophilia/previous clots, or coagulopathy/bleeding disorders. ONCOLOGIC: Denies personal history of malignancy. DERMATOLOGIC: Denies rashes or pruritus. PSYCHIATRIC: Denies any suicidal or homicidal ideation. Denies hallucinations. PHYSICAL EXAM GENERAL APPEARANCE: The patient is awake, alert, and oriented, in no acute cardiopulmonary distress. NEUROLOGICAL: Cranial nerves II-XII grossly intact. Motor is 5/5 in bilateral upper and lower extremities proximal to distal. No sensory deficits. HEENT: Face is symmetric. Pupils are equal and reactive. Extraocular movements are intact. NECK: Supple. No JVD. No thyromegaly. No submental, submandibular, pre- /postauricular, occipital or supraclavicular lymphadenopathy. CHEST: Normal chest expansion. No Telemetry. LUNGS: Absence of any rales, rhonchi or any wheezing. CARDIOVASCULAR: Regular. S1 and S2 normal. No appreciable rubs, murmurs or gallops. ABDOMEN: Soft, nontender, and nondistended. There is no rebound, voluntary guarding, or rigidity. : Deferred. No Bennett. EXTREMITIES: Non-edematous and not cyanotic. No clubbing. Good capillary refill. SKIN: No skin breakdown. Vital Signs (last 8hr) Date Time Temp Pulse Resp B/P (MAP) Pulse Ox O2 Delivery O2 Flow Rate FiO2 02/05/25 12:01 97.3 80 18 130/74 100 Room Air 02/05/25 08:00 97.3 77 18 152/80 98 Room Air 02/05/25 08:00 98 Room Air* 0 21 LABS: Laboratory: Test 02/05/25 03:22 02/04/25 03:12 02/04/25 03:00 Range/Units White Blood Count 7.4 4.8-10.8 K/uL Red Blood Count 4.02 L 4.50-6.20 MIL/uL Hemoglobin 11.9 L 14.0-18.0 g/dL Hematocrit 35.2 L 42-54 % Mean Corpuscular Volume 87.6 79-99 fL Mean Corpuscular Hemoglobin 29.6 27.0-33.0 pg Mean Corpuscular Hemoglobin Concent 33.8 32.0-36.0 g/dL Red Cell Distribution Width 15.4 11.0-15.5 % Platelet Count 217 130-400 K/uL Mean Platelet Volume 10.1 7.5-10.5 fL Nucleated Red Blood Cells 0.0 0.0-0.19 % Sodium Level 141 136-145 mmol/L Potassium Level 4.0 3.5-5.1 mmol/L Chloride Level 106 101-111 mmol/L Carbon Dioxide Level 27 21-32 mmol/L Blood Urea Nitrogen 33 H 7-18 mg/dL Creatinine 1.3 0.5-1.3 mg/dL Glomerular Filtration Rate Calc 53 >90 mL/min Random Glucose 153 H 70-105 mg/dL Total Calcium 8.1 L 8.5-10.1 mg/dL Magnesium Level 1.90 1.80-2.40 mg/dL Influenza Type A Antigen Negative For Type A NEGATIVE Influenza Type B Antigen Negative For Type B NEGATIVE SARS-CoV-2, RNA, NAAT NEGATIVE SARS CoV-2 NEGATIVE Immature Granulocyte % (Auto) 0.5 0-1 % Neutrophils (%) (Auto) 79.2 H 40.0-77.0 % Lymphocytes (%) (Auto) 13.6 L 21.0-51.0 % Monocytes (%) (Auto) 5.5 3.0-13.0 % Eosinophils (%) (Auto) 0.9 0.0-8.0 % Basophils (%) (Auto) 0.3 0.0-5.0 % Neutrophils # (Auto) 9.3 H 1.8-7.7 K/uL Lymphocytes # (Auto) 1.6 1.0-4.8 K/uL Monocytes # (Auto) 0.6 0.1-1.0 K/uL Eosinophils # (Auto) 0.11 0.00-0.70 K/uL Basophils # (Auto) 0.03 0.00-0.20 K/uL Absolute Immature Granulocyte (auto 0.06 0-1 K/uL Prothrombin Time 10.4 9.6-11.6 SEC Prothromb Time International Ratio 0.98 0.85-1.15 Activated Partial Thromboplast Time 24.9 L 26.3-35.5 SEC Urine Color LIGHT-YELLOW YELLOW Urine Appearance CLEAR CLEAR Urine pH 5.0 5.0-8.0 Urine Specific [place] 1.020 1.001-1.031 Urine Protein NEGATIVE NEGATIVE mg/dL Urine Glucose (UA) NEGATIVE NEGATIVE mg/dL Urine Ketones NEGATIVE NEGATIVE mg/dL Urine Occult Blood NEGATIVE NEGATIVE Urine Nitrate NEGATIVE NEGATIVE Urine Bilirubin NEGATIVE NEGATIVE mg/dL Urine Urobilinogen 0.2 0.2-1.0 mg/dL Urine Leukocyte Esterase NEGATIVE NEGATIVE Jyoti/uL Hemoglobin A1c 6.9 H 4.0-6.0 % Estimated Average Glucose (eAG) 151 H 70-126 mg/dL Total Bilirubin 0.4 0.2-1.0 mg/dL Direct Bilirubin 0.1 0.0-0.3 mg/dL Aspartate Amino Transf (AST/SGOT) 19 10-37 U/L Alanine Aminotransferase (ALT/SGPT) 21 12-78 U/L Alkaline Phosphatase 78 50-136 U/L Total Creatine Kinase 33 21-232 U/L Troponin I High Sensitivity 8 4-75 ng/L B-Type Natriuretic Peptide 17 0-100 pg/mL Total Protein 7.1 6.0-8.3 g/dL Albumin 4.0 3.5-5.0 g/dL Triglycerides Level 110 30-200 mg/dL Cholesterol Level 145 # <200 mg/dL LDL Cholesterol 85 0-99 mg/dL HDL Cholesterol 40 29-71 mg/dL Current Medications Medications (Trade) Dose Ordered Sig/Naveed Route PRN Reason Start Time Stop Time Status Last Admin Dose Admin Acetaminophen (TYLenol 325MG TAB) 650 mg Q4H PRN PO TEMPERATURE GREATER THAN 101.5 02/04/25 08:30 03/06/25 08:29 Acetaminophen (TYLenol 325MG TAB) 650 mg Q6H PRN PO MILD PAIN (1-3) 02/04/25 08:30 03/06/25 08:29 Apixaban (EliquIS 2.5 mg) 2.5 mg BID PO 02/04/25 21:00 03/06/25 20:59 02/05/25 09:10 2.5 MG Aspirin (Aspirin 81mg Chew Tab) 81 mg DAILY PO 02/05/25 09:00 03/07/25 08:59 Atorvastatin Calcium (LIPItor 20MG) 20 mg HS PO 02/04/25 21:00 03/06/25 20:59 02/04/25 22:01 20 MG Clopidogrel Bisulfate (plaVIX 75MG) 75 mg DAILY PO 02/05/25 09:00 03/07/25 08:59 02/05/25 09:10 75 MG Famotidine (Pepcid 20mg Tab) 20 mg DAILY PO 02/04/25 09:00 03/06/25 08:59 02/05/25 09:10 20 MG Magnesium Sulfate 50 ml @ 0 mls/hr PROTOCOL PRN IV MAGNESIUM PROTOCOL 02/04/25 08:30 03/06/25 08:29 Ondansetron HCl (zoFRAN 4MG INJ) 4 mg Q6H PRN IVP NAUSEA/VOMITING 02/04/25 08:30 03/06/25 08:29 Potassium Chloride 100 ml @ 100 mls/hr AD PRN IV POTASSIUM PROTOCOL 02/04/25 08:30 03/06/25 08:29 Potassium Chloride (K-Dur/Klor-Con 20meq) 20 meq AD PRN PO POTASSIUM PROTOCOL 02/04/25 08:30 03/06/25 08:29 Potassium Chloride (KCl 10% Elixir 20meq/15ml) 20 meq AD PRN PO POTASSIUM PROTOCOL 02/04/25 08:30 03/06/25 08:29 Sodium Chloride 1,000 ml @ 75 mls/hr [id number] IV 02/04/25 08:30 03/06/25 08:29 02/04/25 09:25 75 MLS/HR DIAGNOSTICS / RADIOLOGY: [ ] ASSESSMENT: [Near syncope, POA Suspected TIA, POA Mild Leukocytosis, POA Elevated BUN, POA Hyperglycemia, POA Bilateral pleural plaque, possible asbestosis PLAN: patient is seen and examined at bedside, case discussed with the RN, no acute events overnight, the time of my visit patient comfortably in bed, alert oriented x3, denies chest pain, shortness shortness for breath, no nausea, no vomiting, no abdominal discomfort. 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 I explained to him that he will need to follow up as an outpatient with his PCP for referral to a educational adviser. He is in agreement. Results of brain MRI no acute intracranial abnormality, brainstem is normal, patient already evaluated by neurologist, likely TIA, patient is started on Plavix and Eliquis. Noted to have low hemoglobin today Of 11.9 with a hematocrit 35.2. He had a bowel movement this morning, no blood noted. It was not black. We will check stool occult blood, iron level panel, CBC in a.m., if stable okay for the patient to be discharged home and follow up as an outpatient with PCP. Patient in agreement. NEURO: Minimize central acting medications as possible. Fall Precautions. Well lighted room through the day and minimize interruptions through the night to prevent acute delirium. PULMONARY: Supplemental 02 as needed BiPAP as necessary, for respiratory distress Titrate Fio2 to keep Spo2 > or = 90% DuoNebs and CPT as needed IS hourly while awake for pulmonary hygiene prn Out of bed to chair as tolerated Maintain aspiration precautions at all times CARDIOVASCULAR: Follow hemodynamics. Vital signs per facility protocol GI & NUTRITION: Continue nutritional support Aspirations precautions Prokinetic agents and laxatives as needed KIDNEYS & ELECTROLYTES: Strict monitoring of intake and output Daily weights Avoid nephrotoxic agents Monitor electrolytes and replace as needed Goal urine output of 30mL/hr or 0.5mL/kg/hr Medications to be dosed according to renal function. Avoid contrast if possible ENDOCRINE: Maintain blood glucose between 100-180 at all times. Insulin sliding scale for blood glucose management Hypoglycemia and hyperglycemia protocol in place INFECTIOUS DISEASE: Trend temperature, WBC and procalcitonin level Follow cultures, deescalate antibiotics as soon as possible. Panculture if new onset fever HEMATOLOGY & COAGULATION: Monitor H&H. Keep Hgb > 7 Transfuse 1 unit of PRBC for Hgb < 7 Transfuse 1 pack of platelets of platelets < 20, 000 Watch for any signs and symptoms of bleeding SKIN: Pressure ulcer prevention per facility protocol Specialty mattress as needed ORTHO/REHAB Continue PT/OT PRN: MEDICATIONS Tylenol 650 mg po every 4 hrs for fever zofran 4 mg IV every 6 hrs for n/v Hydralazine 5 mg IV every 4 hrs systolic pressure > 160 bowel regiment: lactulose 20 gm PO BID PRN constipation Supportive measures: Continue GI and DVT prophylaxis Disposition: Pending improvement in clinical condition All questions answered time spent: > 35 min JACQUELINE CORONEL MD Feb 05, 2025 12:19
[2025-02-05 13:34] LABS: % IRON SATURATION 30.3 % (30-44); IRON, SERUM 84.0 mcg/dL (65-175)
--- NOTE | 2025-02-05 15:45 | NUR ---
BEHAVIOR PATIENT LEFT THE UNIT WHILE CHANGING [id number] PATIENT IN ROOM. PATIENT BROUGHT BACK FROM LOBBY. PATIENT BACK AND IN ROOM AND EDUCATED ON SAFETY WHILE IN THE HOSPITAL. PATIENT AGREES TO COMPLY.
[2025-02-05 16:00] VITALS: BP 136/84; PULSE 75; RESP 18; TEMP 98.7
--- NOTE | 2025-02-05 17:25 | NUR ---
BEHAVIOR PATIENT FOUND WITH METROPROLOL IN ROOM AFTER ALL OTHER HOME MEDICATIONS WERE TAKEN TO PHARMACY. PATIENT DOES NOT WANT TO COMPLY TO GIVE MEDICATION FOR ME TO TAKE TO PHARMACY. MYSELF AND CHAGO BONNER CURRENTLY EDUCATING THE PATIENT ON MEDICATION SAFETY IN THE HOSPITAL. PATIENT DOES NOT WANT TO COMPLY AT THE MOMENT. MD NOTIFIED WELL CHARGE NURSE.
--- NOTE | 2025-02-05 18:55 | NUR ---
Patient arrival Patient arrived to room 306 via wheelchair. Patient oriented to room and vitals assessed. Spouse at bedside. Patient in no acute distress.
--- NOTE | 2025-02-05 19:30 | NUR ---
ORDER IN PLACE FOR 1:1 SITTER. REPORT GIVEN TO LIVIER BONNER TO ASSUME CARE OF THIS PATIENT.
[2025-02-05 20:00] VITALS: BP 173/79; PULSE 100; RESP 20; TEMP 98.2; O2SAT 97
[2025-02-06] VITALS: BP 142/64; PULSE 102; RESP 18; TEMP 98
[2025-02-06 04:00] VITALS: BP 158/82; PULSE 90; RESP 21; TEMP 98
[2025-02-06 04:33] LABS: NUCLEATED RED BLOOD CELLS 0.0 % (0.0-0.19); PLATELET COUNT (AUTO) 213.0 K/uL (130-400); RED BLOOD CELL COUNT(AUTO) 3.91 MIL/uL (4.50-6.20); RED CELL DISTRIBUTION WIDTH 15.4 % (11.0-15.5); WHITE BLOOD COUNT (AUTO) 6.2 K/uL (4.8-10.8)
[2025-02-06 04:53] LABS: ASPARTATE AMINOTRANSFERASE 14.0 U/L (10-37); CREATININE 1.2 mg/dL (0.5-1.3); GLOMERULAR FILTR. RATE CALC 59.0 mL/min (>90); GLUCOSE,RANDOM 157.0 mg/dL (70-105); SODIUM SERUM 141.0 mmol/L (136-145); TOTAL PROTEIN, SERUM 6.6 g/dL (6.0-8.3); UREA NITROGEN, BLOOD 23.0 mg/dL (7-18)
[2025-02-06 08:00] VITALS: BP 164/80; PULSE 83; RESP 18; TEMP 97.9; O2SAT 95
--- NOTE | 2025-02-06 08:32 | NUR ---
nurse note per daughter via telephone "my parents live by themselves, they are able to drive and care for themselves. My mother is able to drive herself and her car is there at the hospital." previous shift was concerned for patient's 's safety since she was confused last night
--- NOTE | 2025-02-06 09:41 | PN ---
[facility] PROGRESS NOTE Date of Service: Feb 06, 2025 Time of Service: 09:39 SUBJECTIVE: 02/05 patient is seen and examined at bedside, case discussed with the RN, no acute events overnight, the time of my visit patient comfortably in bed, alert oriented x3, denies chest pain, shortness shortness for breath, no nausea, no vomiting, no abdominal discomfort. 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 I explained to him that he will need to follow up as an outpatient with his PCP for referral to a power regulator. He is in agreement. Results of brain MRI no acute intracranial abnormality, brainstem is normal, patient already evaluated by neurologist, likely TIA, patient is started on Plavix and Eliquis. Noted to have low hemoglobin today Of 11.9 with a hematocrit 35.2. He had a bowel movement this morning, no blood noted. It was not black. We will check stool occult blood, iron level panel, CBC in a.m., if stable okay for the patient to be discharged home and follow up as an outpatient with PCP. Patient in agreement. REVIEW OF SYSTEMS CONSTITUTIONAL: Denies fevers, chills, or night sweats. No unintentional weight loss reported. NEUROLOGICAL: Denies headache, amaurosis fugax, motor weakness, sensory deficit, vertigo/spinning sensation, gait abnormalities, or tremors. ENT: No hearing loss, otalgia, otorrhea, rhinitis, rhinorrhea, hoarseness, or sore throat. CARDIOVASCULAR: Denies any exertional angina, dyspnea on exertion, orthopnea, paroxysmal nocturnal dyspnea, palpitations, life-threatening arrhythmias, claudication. PULMONARY: Denies any shortness of breath, cough, phlegm/sputum, hemoptysis, pleuritic chest pain. SLEEP: Denies morning headaches, daytime somnolence or napping. Denies difficulty falling asleep, staying asleep, waking from sleep. Denies knowledge of snoring. GASTROINTESTINAL: Denies any type of dysphagia to either liquids or solids. Denies nausea, vomiting, pyrosis, early satiety, abdominal pain, diarrhea, constipation, or changes in stool consistency or caliber. Denies coffee-ground emesis, hematemesis, hematochezia, or melanotic stools. GENITOURINARY: Denies frequency, urgency, nocturia, hematuria or incontinence (Storage/Irritative symptoms.) Low urinary stream, straining to void, urinary intermittency or hesitancy, splitting of the voiding stream, terminal dribbling. ENDOCRINOLOGIC: Denies polyuria, polydipsia, polyphagia or heat/cold intolerances. HEMATOLOGIC: Denies thrombophilia/previous clots, or coagulopathy/bleeding disorders. ONCOLOGIC: Denies personal history of malignancy. DERMATOLOGIC: Denies rashes or pruritus. PSYCHIATRIC: Denies any suicidal or homicidal ideation. Denies hallucinations. PHYSICAL EXAM GENERAL APPEARANCE: The patient is awake, alert, and oriented, in no acute cardiopulmonary distress. NEUROLOGICAL: Cranial nerves II-XII grossly intact. Motor is 5/5 in bilateral upper and lower extremities proximal to distal. No sensory deficits. HEENT: Face is symmetric. Pupils are equal and reactive. Extraocular movements are intact. NECK: Supple. No JVD. No thyromegaly. No submental, submandibular, pre- /postauricular, occipital or supraclavicular lymphadenopathy. CHEST: Normal chest expansion. No Telemetry. LUNGS: Absence of any rales, rhonchi or any wheezing. CARDIOVASCULAR: Regular. S1 and S2 normal. No appreciable rubs, murmurs or gallops. ABDOMEN: Soft, nontender, and nondistended. There is no rebound, voluntary guarding, or rigidity. : Deferred. No Bennett. EXTREMITIES: Non-edematous and not cyanotic. No clubbing. Good capillary refill. SKIN: No skin breakdown. Vital Signs (last 8hr) Date Time Temp Pulse Resp B/P (MAP) Pulse Ox O2 Delivery O2 Flow Rate FiO2 02/06/25 08:00 97.9 83 18 164/80 95 Room Air 21 02/06/25 04:00 98.1 90 21 158/82 95 Room Air LABS: Laboratory: Test 02/06/25 04:14 02/05/25 13:07 Range/Units White Blood Count 6.2 4.8-10.8 K/uL Red Blood Count 3.91 L 4.50-6.20 MIL/uL Hemoglobin 11.6 L 14.0-18.0 g/dL Hematocrit 35.0 L 42-54 % Mean Corpuscular Volume 89.5 79-99 fL Mean Corpuscular Hemoglobin 29.7 27.0-33.0 pg Mean Corpuscular Hemoglobin Concent 33.1 32.0-36.0 g/dL Red Cell Distribution Width 15.4 11.0-15.5 % Platelet Count 213 130-400 K/uL Mean Platelet Volume 9.8 7.5-10.5 fL Nucleated Red Blood Cells 0.0 0.0-0.19 % Sodium Level 141 136-145 mmol/L Potassium Level 3.8 3.5-5.1 mmol/L Chloride Level 106 101-111 mmol/L Carbon Dioxide Level 26 21-32 mmol/L Blood Urea Nitrogen 23 H 7-18 mg/dL Creatinine 1.2 0.5-1.3 mg/dL Glomerular Filtration Rate Calc 59 >90 mL/min Random Glucose 157 H 70-105 mg/dL Total Calcium 8.2 L 8.5-10.1 mg/dL Magnesium Level 1.90 1.80-2.40 mg/dL Total Bilirubin 0.6 0.2-1.0 mg/dL Aspartate Amino Transf (AST/SGOT) 14 10-37 U/L Alanine Aminotransferase (ALT/SGPT) 16 12-78 U/L Alkaline Phosphatase 71 50-136 U/L Total Protein 6.6 6.0-8.3 g/dL Albumin 3.5 3.5-5.0 g/dL Iron Level 84 65-175 mcg/dL Total Iron Binding Capacity 277 250-450 mcg/dL Percent Iron Saturation 30.3 30-44 % Current Medications Medications (Trade) Dose Ordered Sig/Naveed Route PRN Reason Start Time Stop Time Status Last Admin Dose Admin Acetaminophen (TYLenol 325MG TAB) 650 mg Q4H PRN PO TEMPERATURE GREATER THAN 101.5 02/04/25 08:30 03/06/25 08:29 Acetaminophen (TYLenol 325MG TAB) 650 mg Q6H PRN PO MILD PAIN (1-3) 02/04/25 08:30 03/06/25 08:29 02/06/25 00:09 650 MG Apixaban (EliquIS 2.5 mg) 2.5 mg BID PO 02/04/25 21:00 03/06/25 20:59 02/06/25 08:26 2.5 MG Aspirin (Aspirin 81mg Chew Tab) 81 mg DAILY PO 02/05/25 09:00 03/07/25 08:59 Atorvastatin Calcium (LIPItor 20MG) 20 mg HS PO 02/04/25 21:00 03/06/25 20:59 02/05/25 20:29 20 MG Clopidogrel Bisulfate (plaVIX 75MG) 75 mg DAILY PO 02/05/25 09:00 03/07/25 08:59 02/06/25 08:25 75 MG Famotidine (Pepcid 20mg Tab) 20 mg DAILY PO 02/04/25 09:00 03/06/25 08:59 02/06/25 08:25 20 MG Magnesium Sulfate 50 ml @ 0 mls/hr PROTOCOL PRN IV MAGNESIUM PROTOCOL 02/04/25 08:30 03/06/25 08:29 Metoprolol Succinate (TopROL XL) 25 mg DAILY PO 02/06/25 09:00 03/08/25 08:59 02/06/25 08:25 25 MG Ondansetron HCl (zoFRAN 4MG INJ) 4 mg Q6H PRN IVP NAUSEA/VOMITING 02/04/25 08:30 03/06/25 08:29 Potassium Chloride 100 ml @ 100 mls/hr AD PRN IV POTASSIUM PROTOCOL 02/04/25 08:30 03/06/25 08:29 Potassium Chloride (K-Dur/Klor-Con 20meq) 20 meq AD PRN PO POTASSIUM PROTOCOL 02/04/25 08:30 03/06/25 08:29 Potassium Chloride (KCl 10% Elixir 20meq/15ml) 20 meq AD PRN PO POTASSIUM PROTOCOL 02/04/25 08:30 03/06/25 08:29 Sodium Chloride 1,000 ml @ 75 mls/hr [id number] IV 02/04/25 08:30 03/06/25 08:29 02/04/25 09:25 75 MLS/HR Tamsulosin HCl (FloMAX) 0.4 mg DAILYDINNER PO 02/06/25 17:00 03/08/25 16:59 DIAGNOSTICS / RADIOLOGY: [ ] ASSESSMENT: [Near syncope, POA Suspected TIA, POA Mild Leukocytosis, POA Elevated BUN, POA Hyperglycemia, POA Bilateral pleural plaque, possible asbestosis PLAN: patient is seen and examined at bedside, case discussed with the RN, no acute events overnight, the time of my visit patient comfortably in bed, alert orie nted x3, denies chest pain, shortness shortness for breath, no nausea, no vomiting, no abdominal discomfort. 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 I explained to him that he will need to follow up as an outpatient with his PCP for referral to a power regulator. He is in ag reement. Results of brain MRI no acute intracranial abnormality, brainstem is normal, patient already evaluated by neurologist, likely TIA, patient is started on Plavix and Eliquis. Noted to have low hemoglobin today Of 11.9 with a hematocrit 35.2. He had a bowel movement this morning, no blood noted. It was not black. We will check stool occult blood, iron level panel, CBC in a.m., if stable okay for the patient to be discharged home and follow up as an outpatient with PCP. Patient in agreement. NEURO: Minimize central acting medications as possible. Fall Precautions. Well lighted room through the day and minimize interruptions through the night to prevent acute delirium. PULMONARY: Supplemental 02 as needed BiPAP as necessary, for respiratory distress Titrate Fio2 to keep Spo2 > or = 90% DuoNebs and CPT as needed IS hourly while awake for pulmonary hygiene prn Out of bed to chair as tolerated Maintain aspiration precautions at all times CARDIOVASCULAR: Follow hemodynamics. Vital signs per facility protocol GI & NUTRITION: Continue nutritional support Aspirations precautions Prokinetic agents and laxatives as needed KIDNEYS & ELECTROLYTES: Strict monitoring of intake and output Daily weights Avoid nephrotoxic agents Monitor electrolytes and replace as needed Goal urine output of 30mL/hr or 0.5mL/kg/hr Medications to be dosed according to renal function. Avoid contrast if possible ENDOCRINE: Maintain blood glucose between 100-180 at all times. Insulin sliding scale for blood glucose management Hypoglycemia and hyperglycemia protocol in place INFECTIOUS DISEASE: Trend temperature, WBC and procalcitonin level Follow cultures, deescalate antibiotics as soon as possible. Panculture if new onset fever HEMATOLOGY & COAGULATION: Monitor H&H. Keep Hgb > 7 Transfuse 1 unit of PRBC for Hgb < 7 Transfuse 1 pack of platelets of platelets < 20, 000 Watch for any signs and symptoms of bleeding SKIN: Pressure ulcer prevention per facility protocol Specialty mattress as needed ORTHO/REHAB Continue PT/OT PRN: MEDICATIONS Tylenol 650 mg po every 4 hrs for fever zofran 4 mg IV every 6 hrs for n/v Hydralazine 5 mg IV every 4 hrs systolic pressure > 160 bowel regiment: lactulose 20 gm PO BID PRN constipation Supportive measures: Continue GI and DVT prophylaxis Disposition: Pending improvement in clinical condition All questions answered time spent: > 35 min ATTESTATION BY PHYSICIAN I have seen and examined the patient. I reviewed the documentation, medical decision making, and treatment plan as noted by the mid-level provider above. I agree with the findings and plan of care. JACQUELINE CORONEL MD, [facility] Feb 06, 2025 09:41
[2025-02-06] MEDS ORDERED: ATOR20TA65 PO (10:35)
[2025-02-06] MEDS ORDERED: FAMO20TA8 PO (10:35)
--- NOTE | 2025-02-06 10:46 | DS ---
Discharge Summary Hospital Course Summary: 02/05 patient is seen and examined at bedside, case discussed with the RN, no acute events overnight, the time of my visit patient comfortably in bed, alert oriented x3, denies chest pain, shortness shortness for breath, no nausea, no vomiting, no abdominal discomfort. Results of CT of the chest reviewed, d iscussed with the patient, he used to work in the industrial field, he is not surprised that he g asbestosis. I explained to him that he will need to follow up as an outpatient with his PCP for referral to a pond tender. He is in agreement. Results of brain MRI no acute intracranial abnormality, brainstem is normal, patient already evaluated by neurologist, likely TIA, patient is started on Plavix and Eliquis. Noted to have low hemoglobin today Of 11.9 with a hematocrit 35.2. He had a bowel movement this morning, no blood noted. It was not black. 02/06/25 patient is clinically stable and hemodynamically stable for discharge home. H&H remained stable patient will continue with current home medication Plavix 75 mg, Eliquis 2.5 mg b.i.d. patient we will be started on statin therapy goal is to keep HDL is below 70. Advised patient on low saturation fat diet. Patient on blood thinners will be started on PUD famotidine 20 mg po daily. Patient examination noted no focal or sensory deficits denied chest pain or shortness for breath. Procedure(s): REASON: CVA ORDERING PHYSICIAN: JETT MULLINS PROCEDURE: BRAIN WO - MR BRAIN WO CON EXAM: MR Brain with Brain Stem without IV Contrast CLINICAL HISTORY: CVA. TECHNIQUE: Multiplanar multi-sequence MRI of the brain. CONTRAST: None. COMPARISON: CT dated February 04, 2025. FINDINGS: There is generalized prominence of the sulci, gyri and cisternal spaces with mild dilatation of the ventricular system ??? suggestive of age-related diffuse neuro-parenchymal atrophy. Chronic ischemic changes in bilateral subcortical and paraventricular deep white matter. No evidence of acute cortical infarction, hemorrhage, mass or mass effect. The ventricular system is normal in size, shape, and contour. No hydrocephalus. No abnormal extra-axial fluid collection is present. The marrow signal within the skull base and calvarium is intact. The paranasal sinuses and mastoid air cells are clear. IMPRESSION: 1. No acute intracranial abnormality or mass. 2. Brain stem is normal. 3. Diffuse age-related neuro-parenchymal atrophy with chronic ischemic changes in bilateral subcortical and paraventricular deep white matter. Compared to the previous CT dated February 04, 2025, no significant interval change. REASON: Chronic peripheral pleural plaques and interstitial thickening bilaterally. ORDERING PHYSICIAN: JACQUELINE CORONEL MD PROCEDURE: CHEST WO - CT CHEST W/O CONTRAST CT CHEST WITHOUT IV CONTRAST Clinical History: Chronic peripheral pleural plaques and interstitial thickening bilaterally. Technique: Axial computed tomography images of the chest without intravenous contrast. Comparison: CR - CHEST 1VW - 02/04/25 03:07 EDT Findings: Lungs: Minimal subpleural lung scarring with early honeycombing is noted in the bilateral lower lobes. No pulmonary mass is identified. The remainder of the lung parenchyma appears essentially clear. Pleural Spaces: Diffuse pleural plaques are seen involving the peripheral pleural surfaces, diaphragmatic pleural surfaces, and mediastinal pleural surfaces, measuring up to a maximum thickness of 1.5 cm. No pneumothorax is evident. No pleural effusions are present. Heart: No cardiomegaly. No significant pericardial effusion. Lymph Nodes: No lymphadenopathy is evident. Upper Abdomen: The upper abdominal solid organs are unremarkable. Bones: No acute osseous abnormality. IMPRESSION: 1. Diffuse pleural plaques, up to 1.5 cm thick, involving peripheral, diaphragmatic, and mediastinal pleural surfaces. 2. Minimal subpleural lung scarring with early honeycombing in bilateral lower lobes. 3. No acute findings. 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 characterised by diffuse pleural plaques and basal subpleural fibrosis with early honeycombing. Recommendation: Correlate with occupational history and exposure duration. Consider HRCT chest for fibrosis pattern characterisation. REASON: r/o cva ORDERING PHYSICIAN: JETT MULLINS [facility] PROCEDURE: ECHO CMP - ECHO 2-D COMPLETE APPROVED REPORT EXAM: Two-dimensional and M-mode echocardiogram with Doppler and color Doppler. INDICATION ICD: CVA Contrast Details Indication: Rule out PFO Agent/Amount Used: Agitated Saline 2D Dimensions RVDd 4.9 cm LVEF(%) 48.6 (>50%) LVED Vol(simp.) 97.0 mL IVSd 1.0 (0.7-1.1cm) FS(%) 25 % LVES Vol(simp.) 33.0 mL LVDd 5.0 (3.8-5.6cm) LA (2D) 4.7 (1.6-4.0cm) LVEF(%, simp.) 66 % PWd 0.8 (0.7-1.1cm) Ao Root(2D) 3.4 (2.0-3.7cm) LA ESV INDEX (BP) 45.67 mL/m2 IVSs 0.8 cm LVOT diam 2.1 (1.8-2.4cm) LVDs 3.8 (2.5-4.0cm) PWs 1.4 cm M-Mode Dimensions EPSS 0.4 cm LA (MM) 4.9 (1.6-4.0cm) Ao Root(MM) 3.2 (2.0-3.7cm) Aortic Valve AoV Vmax 1.5 m/s Ao Peak GR 9.1 mmHg LVOT Vmax 0.9 m/s AoV VTI 0.3 m Ao Mean GR 5.1 mmHg LVOT VTI 0.18 m DORETHA (VMAX) 1.94 cm2 DORETHA (VTI) 2.1 cm2 Mitral Valve MV E Vmax 65.7 cm/s DECEL Time 223 ms MV A Vmax 96.7 cm/s P 1/2 T 48 ms E/A ratio 0.7 MVA (PHT) 4.6 cm2 TDI E/E' Medial 14.1 E/E' Lateral 10.4 Medial E' Peak V 4.66 cm/s Lateral E' Peak V 6.31 cm/s Pulmonary Valve PV Vmax 1.1 m/s PV VTI 0.21 m PV Mean GR 2.2 mmHg PV Peak GR 5.2 mmHg Tricuspid Valve TR Vmax 2.4 m/s RAP (EST) 3 mmHg RVSP 28.3 mmHg TR Peak GR 25.3 mmHg Left Ventricle The left ventricle is normal size. There is normal LV segmental wall motion. Mild concentric left ventricular hypertrophy. LVEF is 60-65%. Indeterminate diastolic dysfunction. Right Ventricle The right ventricle is mildly dilated. The right ventricular systolic function is normal. Atria The left atrium is moderately dilated. No evidence of PFO/ASD by agitated saline. The right atrium size is normal. Aortic Valve The aortic valve is normal in structure. No aortic regurgitation is present. There is no aortic valvular stenosis. Mitral Valve The mitral valve is normal in structure. There is trace mitral valve regurgitation noted. There is no mitral valve stenosis. Tricuspid Valve The tricuspid valve is normal in structure. There is trace tricuspid valve regurgitation noted. Pulmonic Valve Pulmonic valve is not well visualized. There is no pulmonic valvular regurgitation. Great Vessels The aortic root is normal in size. The IVC is normal in size and collapses >50% with inspiration. Pericardium There is no pericardial effusion. Other Information Quality : Fair Conclusion The left ventricle is normal size. LVEF is 60-65% with normal LV segmental wall motion. Mild concentric left ventricular hypertrophy. Indeterminate diastolic dysfunction. The right ventricular systolic function is normal. The left atrium is moderately dilated. suboptimial bubble study but there is no PFO/ASD by agitated saline. No hemodynamically significant valvular abnormalities. There is no pericardial effusion. REASON: r/o cva ORDERING PHYSICIAN: JETT MULLINS [facility] PROCEDURE: CAROTID - US CAROTID DUPLEX EXAMINATION: DUPLEX ULTRASOUND EXAMINATION OF THE BILATERAL CAROTID AND VERTEBRAL ARTERIES. CLINICAL HISTORY: To rule out CVA. COMPARISON: None provided. TECHNIQUE: Real-time ultrasound scan of the bilateral carotid and vertebral arteries, 2-D grayscale, with color Doppler flow and spectral waveform analysis. FINDINGS: Color and spectral Doppler interrogation of the carotid vessels on the right demonstrate peak systolic velocities as follows: CCA (Proximal, mid, and distal): 86, 58, and 48 cm/s respectively. Bulb: 44 cm/s. ECA: 70 cm/s. ICA (Proximal, mid, and distal): 48, 80, and 73 cm/s respectively. Vertebral artery demonstrates antegrade flow: 22 cm/s. Right ICA/CCA ratio: 0.9 Peak systolic velocities on the left are as follows: CCA (Proximal, mid, and distal): 59, 73, and 57 cm/s respectively. Bulb: 62 cm/s. ECA: 112 cm/s. ICA (Proximal, mid, and distal): 55, 53, and 67 cm/s respectively. Vertebral artery demonstrates antegrade flow: 42 cm/s. Left ICA/CCA ratio: 1.1 REASON: AMS, VERTIGO ORDERING PHYSICIAN: RYAN CAREY MD PROCEDURE: HEAD WO - CT HEAD/BRAIN W/O CONTRAST EXAM: CT Head Without IV contrast. CLINICAL HISTORY: AMS, VERTIGO TECHNIQUE: Axial computed tomography images of the head/brain without intravenous contrast. COMPARISON: None provided. FINDINGS: BRAIN: No acute bleed or infarct. Chronic ischemic and atrophic changes. VENTRICLES: No hydrocephalus. ORBITS: The orbits are unremarkable. SINUSES AND MASTOIDS: The paranasal sinuses and mastoid air cells are clear. BONES: No fracture. SOFT TISSUES: Unremarkable. IMPRESSION: No acute bleed or infarct. Chronic ischemic and atrophic changes. Assessment/Plan: discharged dx's; [Near syncope, POA Suspected TIA ruled in , POA Mild Leukocytosis, POA Elevated BUN, POA Hyperglycemia, POA Bilateral pleural plaque, possible asbestosis PLAN: patient is seen and examined at bedside, case discussed with the RN, no acute events overnight, the time of my visit patient comfortably in bed, alert oriented x3, denies chest pain, shortness shortness for breath, no nausea, no vomiting, no abdominal discomfort. will follow up PCP: will need referral pond tender's CT chest revealed asbestosis. Results of brain MRI no acute int racranial abnormality, brainstem is normal, patient already evaluated by neurologist, likely TIA, patient is current home medication on Plavix and Eliquis will be continue as per Dr Lanier. H/H stable. the patient will be discharged on PUD: famotidine 20 mg po daily and started on statin therapy: ADMISSION DATE: 02/04/2025 DISCHARGE DATE: 02/06/25 DISPOSITION: home CONDITION: stable WHIPPER(S): neurologist FOLLOW UP APPOINTMENT(S): PCP: 2-[address] Consuelo Maldonado MD PROCEDURES: none IMAGING (S) report attached to summary : CT head, carotid artery ultrasound, echo, chest CT, brain MRI MICROBIOLOGY: report attached to summary; none ACTIVITY: ab spencer HOME MEDICATIONS remain the same CHANGES ON HOME MEDICATIONS none NEW MEDICATIONS famotidine and Atorvastin 20 mg po HS TEACHING: fall precaution. Emergency instructions: The patient was instructed to present to the nearest Emergency Department or call 911 should their symptoms return or worsen. Home Medications: Reported Medications Apixaban (Eliquis) 2.5 Mg Tablet, 1 TAB PO BID for 30 Days, #60 TAB 0 Refills 02/04/25 Tiotropium Rock (Spiriva) 18 Mcg Cap.w.dev, 1 CAP IH DAILY for 30 Days, #30 CAP 0 Refills 02/04/25 Tamsulosin HCl (Flomax) 0.4 Mg Cap.er.24h, 1 CAP PO DAILYDINNER for 30 Days, #30 CAP 0 Refills 02/04/25 Metformin HCl (Metformin HCl) 500 Mg Tablet, 1 TAB PO DAILY for 30 Days, #60 TAB 0 Refills 02/04/25 Clopidogrel Bisulfate (Clopidogrel) 75 Mg Tablet, 1 TAB PO DAILY for 30 Days, #30 TAB 0 Refills 02/04/25 Finasteride (Finasteride) 5 Mg Tablet, 1 TAB PO DAILY for 30 Days, #30 TAB 0 Refills 02/04/25 Allopurinol (Allopurinol) 300 Mg Tablet, 300 MG PO DAILY, TAB 07/12/22 Metoprolol Succinate (Metoprolol Succinate) 25 Mg Tab.er.24h, 25 MG PO DAILY, TAB 07/12/22 Discontinued Reported Medications Empagliflozin (Jardiance) 25 Mg Tablet, 1 TAB PO DAILY for 30 Days, #30 TAB 0 Refills 02/12/24 Pregabalin (Pregabalin) 100 Mg Capsule, 1 CAP PO BID MDD 2 Capsule(s) for 30 Days, #60 CAP 0 Refills 02/12/24 Milk Thistle (Milk Thistle) 175 Mg Tablet, 175 MG PO DAILY, TAB 05/23/23 Cholecalciferol (Vitamin D3) (Vitamin D3) 50 Mcg (2000 Unit) Capsule, 50 MCG PO DAILY, CAP 05/23/23 Vitamin B Complex (B Complex) 1 Cap Capsule, 1 CAP PO DAILY, CAP 07/12/22 Discontinued Scripts Levofloxacin (Levofloxacin) 500 Mg Tablet, 1 TAB PO DAILY for 10 Days, #10 TAB 0 Refills Prov:SAMI MUSA MD 02/13/24 Atorvastatin Calcium (LIPITOR) 40 Mg Tablet, 40 MG PO HS for 30 Days, #30 TAB 1 Refill Prov:DANIEL JERONIMO Jr., MD 07/13/22 New Medications: Atorvastatin Calcium (Atorvastatin Calcium) 20 Mg Tablet 20 MG PO HS for 30 Days, #30 TAB Famotidine (Famotidine) 20 Mg Tablet 20 MG PO DAILY for 30 Days, #30 TAB Continued Medications: Allopurinol (Allopurinol) 300 Mg Tablet 300 MG PO DAILY, TAB Apixaban (Eliquis) 2.5 Mg Tablet 1 TAB PO BID for 30 Days, #60 TAB 0 Refills Clopidogrel Bisulfate (Clopidogrel) 75 Mg Tablet 1 TAB PO DAILY for 30 Days, #30 TAB 0 Refills Finasteride (Finasteride) 5 Mg Tablet 1 TAB PO DAILY for 30 Days, #30 TAB 0 Refills Metformin HCl (Metformin HCl) 500 Mg Tablet 1 TAB PO DAILY for 30 Days, #60 TAB 0 Refills Metoprolol Succinate (Metoprolol Succinate) 25 Mg Tab.er.24h 25 MG PO DAILY, TAB Tamsulosin HCl (Flomax) 0.4 Mg Cap.er.24h 1 CAP PO DAILYDINNER for 30 Days, #30 CAP 0 Refills Tiotropium Rock (Spiriva) 18 Mcg Cap.w.dev 1 CAP IH DAILY for 30 Days, #30 CAP 0 Refills Time spent arranging discharge: 31-60 minutes JOSE REBOLLEDO AGACNP Feb 06, 2025 10:46
--- NOTE | 2025-02-06 11:46 | NUR ---
discharge patient and family educated regarding discharged instructions including diet, activity, follow ups, medications, signs and symptoms to report/return to ER. patient and family understood.
[2025-02-06 12:00] VITALS: BP 134/72; PULSE 82; RESP 17; TEMP 98.1
== END 2025-02-06 12:15 | disposition home or self-care (01) ==
LOC: EDH 02:29 → EDHIP 08:00 → 1MS 10:51 → 3BH 02-05 18:55
PROVIDERS: ADMIT Internal Medicine; ATTEND Internal Medicine
DX: R55 Syncope and collapse (principal); D72.829 Elevated white blood cell count, unspecified; E78.5 Hyperlipidemia, unspecified; R41.82 Altered mental status, unspecified; G51.0 Bell's palsy; R53.1 Weakness; D64.9 Anemia, unspecified; K27.9 Peptic ulcer, site unspecified, unspecified as acute or chronic, without hemorrhage or perforation; Z20.822 Contact with and (suspected) exposure to COVID-19; Z79.01 Long term (current) use of anticoagulants; Z86.73 Personal history of transient ischemic attack (TIA), and cerebral infarction without residual deficits; Z85.6 Personal history of leukemia; Z79.899 Other long term (current) drug therapy; Z98.890 Other specified postprocedural states
CPT/HCPCS: 96360; 96361; 99285; 83036; 82550; 80076; 83735 ×3; 84484; 80061; 80048 ×2; 83880; 85025; 85610; 85730; 87804 ×2; 81003; 36415 ×3; 87635; 71045; 70450; 71250; 93306; 93880; 70551; 97161; 97116; 97530 ×2; 93005; 83540; 83550; 85027 ×2; 80053; G0378 ×52